=== PATIENT | male | born 2000 ===

== ENCOUNTER 2021-06-05 06:00 | Emergency (ER) | payer OTHER ==
--- OUTSIDE RECORDS SUMMARY | 2021-06-05 06:06 | XMS REPORT | Continuity of Care Document ---
:2000 Author Organization [facility] t Address [facility] [address] [place] [address] Care Team Providers Name Role Phone Aileen RENDON Primary Care Physician ARIANE Attending Clinician Unavailable Rayna Roberson Attending Clinician Ariane RENDON Attending Clinician Golden RENDON Attending Clinician Aden PAGAN Attending Clinician Lissy Galan MD Attending Clinician AILEEN Attending Clinician Unavailable Gopal ROSEN Attending Clinician MARTIN Attending Clinician Unavailable Aileen RENDON Attending Clinician Devang BRIONES Attending Clinician Unavailable ARIANE Admitting Clinician Unavailable Ariane RENDON Admitting Clinician Payers Payer Name Policy Type Policy Number Effective Date Expiration Date Edward JOHANSEN [id number] 2016 HEALTH 00:00:00 Problems Condition Condition Condition Status Onset Resolution Last Treating Co mments Source Name Details Category Date Date Treatment Clinician Date Acute Acute Disease Active Univers appendicit appendicit 1-11 it y of is is 00:00: [place] 00 Medical Branch Screening Screening Disease Active 2020-05 Uni vers for for 2-09 ity of diabetes diabetes 00:00: [place] mellitus mellitus 00 Medica l Branch Vapes Vapes Disease Active 2020-05 Univers nicotine nicotine -09 it[place] of containing [place] 00:[place] substance substance 00 [facility] Marijuana Marijuana Disease Active 2020-05 Uni vers use use 2- ity of 00:00: [place] 00 Medical Branch Need for Need for Disease Active 2020-05 Unive rs hepatitis hepatitis 2- ity of C C 00:00: [place] screening screening 00 Medi sharee test test Branch Anxiety Anxiety Disease Active 2020-05 Univers attack attack 2-09 ity of 00:00: [place] 00 Medical Branch PTSD PTSD Disease Active 2017-05 Univers (post-trau (post-trau 1-10 it y of matic matic 00:00: [place] stress stress 00 Medical disorder) disorder) Bran ch ADHD ADHD Disease Active 2017-05 Univers (attention (attention 1-10 it y of deficit deficit 00:00: [place] hyperactiv hyperactiv 00 Me dical ity ity Branch disorder) disorder) Learning Learning Disease Active 2017-05 Overview: Un dar[place] disability disability 1-10 Formattin ity of 00:00: g of this [place] note Medical might be Branch different from the original. Math Heart Heart Disease Active 2017-05 Overview: Univer s murmur murmur 0-20 Formattin ity of 00:00: g of this [place] note Medical might be Branch different from the original. Small secundum ASD vs. PFO Tachycardi Tachycardi Disease Active Overview : Univers a a 1-01 Formattin ity of 00:00: g of this [place] note Medical might be Branch different from the original. Has had evaluatio n by [facility] Cardiolog y - Dr. Patterson - 8. Palpitati ons history, normal EKG, Echo - with small secundum ASD/PFO H/O H/O Disease Active Univers seasonal seasonal ity of allergies allergies [facility] Asthma Asthma Disease Active Overview: Univer s Formattin ity of g of this [place] note Medical might be Branch different from the original. mild intermitt ent Anxiety Anxiety Disease Active Overview: Univ ers and and Formattin ity of depression depression g of this [place] note Medical might be Branch different from the original. Follows with Dr. Street - psychiatr y Allergies, Adverse Reactions, Alerts Allergy Allergy Status Severity Reaction(s) Onset Inactive Treating Comm ents Source Name Type Date Date Clinician NO KNOWN Drug Active Univers ALLERGIE Class ity of S [facility] Social History Social Habit Start Date Stop Date Quantity Comments Source Exposure to Not sure [facility] SARS-CoV-2 [facility] (event) Branch Alcohol intake 2021-06-02 2021-06-02 Current University of 00:00:00 00:00:00 non-drinker of [facility] alcohol (finding) Branch Tobacco use and 2021-05-31 2021-05-31 Current user Univers ity of exposure 00:00:00 00:00:00 [facility] Education 2021-05-31 2021-05-[address] [place] [address] of 00:00:00 00:00:00 [facility] Tobacco Comment 2021-05-31 2021-05-31 Vape/ Marijuana [facility] of 00:00:00 00:00:00 last use [facility] 05/31/2020 [place] Sex Assigned At [birth year] Universit y of 00:00:00 00:00:00 [facility] Smoking Status Start Date Stop Date Source Current every day smoker 2021-05-31 00:00:00 Uni versity of [facility] Never smoker [facility] [place] [facility] Medications Ordered Filled Start Stop Current Ordering Indication Dosage Frequency Signature Comments Components Source Medication Medication Date Date Medication? Clinician (SIG) Name Name HYDROcodone Yes [id number] 1{tbl} Take 1 Un darvin -acetaminop 1-13 tablet by ity of hen 5-325 00:00: mouth [place] mg tablet 00 every 6 Medical (six) Branch hours as needed for Pain (scale 7-10). Indication s: acute pain acetaminoph Yes 650mg 650 mg, Un darvin en 1-13 Oral, Q6H, ity of (TYLENOL) 00:00: [place] tablet 650 00 (after Medical mg last Branch modificati on) on Sun06/01/21 at 1800, Until Discontinu ed, Routine ibuprofen Yes 400mg 400 mg, Univ ers (IBU) 1-13 Oral, Q6H, ity of tablet 400 00:00: First dose [place] mg 00 on Sun Medical 06/01/21 at Branch 1800, Until Discontinu ed, Routine HYDROcodone 0 Yes [id number] 1{tbl} Take 1 Un darvin -acetaminop 1-13 tablet by ity of hen 5-325 00:00: mouth [place] mg tablet 00 every 6 Medical (six) Branch hours as needed for Pain (scale 7-10). Indication s: acute pain acetaminoph Yes 650mg 650 mg, Un darvin en 1-13 Oral, Q6H, ity of (TYLENOL) 00:00: [place] tablet 650 00 (after Medical mg last Branch modificati on) on Sun06/01/21 at 1800, Until Discontinu ed, Routine ibuprofen Yes 400mg 400 mg, Univ ers (IBU) 1-13 Oral, Q6H, ity of tablet 400 00:00: First dose [place] mg 00 on Sun Medical 06/01/21 at Branch 1800, Until Discontinu ed, Routine ibuprofen 2021- Yes [id number] 400mg Take 1 Univers 400 mg 06-02 tablet by ity of tablet 00:00: 05:59 mouth [place] 00 :00 every 6 Medical (six) Branch hours for 7 days. ibuprofen 2021- Yes [id number] 400mg Take 1 Univers 400 mg 06-02 tablet by ity of tablet 00:00: 05:59 mouth [place] 00 :00 every 6 Medical (six) Branch hours for 7 days. haloperidol 2021- No Intramuscu Univers lactate 06-01 lar, ONCE ity of (HALDOL) 20:39: 20:39 INTRA [place] injection 00 :39 PROCEDURE, Medi sharee Starting Branch on Sun06/01/21 at 1439, Until Sun06/01/21 at 1439, Routine, Intra-op NaCl 0.9% Yes 1000mL at 42 Unive rs (NS) IV 1-12 mL/hr, IV ity of infusion 20:30: Infusion, [place] 1,000 mL 00 CONTINUOUS Medic al , Starting Branch on Sun06/01/21 at 1430, Until Discontinu ed, Routine NaCl 0.9% 0 Yes 1000mL at 42 Unive rs (NS) IV 1-12 mL/hr, IV ity of infusion 20:30: Infusion, [place] 1,000 mL 00 CONTINUOUS Medic al , Starting Branch on Sun06/01/21 at 1430, Until Discontinu ed, Routine sugammadex 2021- No IV Push, Un darvin (BRIDION) 06-01 ONCE INTRA ity of injection 20:12: 20:26 PROCEDURE, [place] 00 :18 Starting Medical on Sun Branch 06/01/21 at 1412, Until Sun06/01/21 at 1426, Routine, Intra-op ketorolac 2021- No Slow IV Univ ers (TORADOL) 06-01 Push, ONCE ity of injection 20:07: 20:26 INTRA [place] 00 :18 PROCEDURE, Medical Starting Branch on Sun06/01/21 at 1407, Until Sun06/01/21 at 1426, Routine, Intra-op acetaminoph 2021- No IV Unive rs en ADULT 06-01 Infusion, ity o f (OFIRMEV) 19:58: 20:26 Administer [place] injection 00 :18 over 15 Medical Minutes, Branch ONCE INTRA PROCEDURE, Starting on Sun06/01/21 at 1358, Until Sun06/01/21 at 1426, Routine, Intra-op ondansetron 2021- No Slow IV Un darvin (ZOFRAN 06-01 Push, ONCE ity o f (PF)) 19:56: 20:26 INTRA [place] injection 00 :18 PROCEDURE, Medi sharee Starting Branch on Sun06/01/21 at 1356, Until Sun06/01/21 at 1426, Routine, Intra-op sodium 2021-0 Yes PRN, Univers chloride 06-01 Starting ity of 0.9 % 19:48: on Sun irrigation 06/01/21 at Med ical solution 1348, Branch Until Discontinu ed, Intra-op sodium 2021-0 Yes PRN, Univers chloride 06-01 Starting ity of 0.9 % 19:48: on Sun irrigation 06/01/21 at Med ical solution 1348, Branch Until Discontinu ed, Intra-op bupivacaine 2021-0 Yes PRN, Univer s (preserv 06-01 Starting ity of free) 19:36: on Sun (SENSORCAIN 00 06/01/21 at Mo dicsd E MPF) 0.25 1336, Branch % (2.5 Intra-op mg/mL) 30 mL, lidocaine 1% (PF) (XYLOCAINE) 30 mL bupivacaine 2022-0 Yes PRN, Univer s (preserv 06-01 Starting ity of free) 19:36: on Sun [place] (SENSORCAIN 00 06/01/21 at Mo dical E MPF) 0.25 1336, Branch % (2.5 Intra-op mg/mL) 30 mL, lidocaine 1% (PF) (XYLOCAINE) 30 mL dexamethaso 2021- No IV Push, U nivers ne 06-01 ONCE INTRA ity of (DECADRON 19:31: 20:26 PROCEDURE, [place] PHOSPHATE) 00 :18 Starting Medic al injection on Sun Branch 06/01/21 at 1331, Until Sun06/01/21 at 1426, Routine, Intra-op cefOXitin 2021- No IV Univers (MEFOXIN) 06-01 Piggyback, ity of injection 19:18: 20:26 ONCE INTRA [place] 00 :18 PROCEDURE, Medical Starting Branch on Sun06/01/21 at 1318, Until Sun06/01/21 at 1426, SAMM, Intra-op succinylcho 2021- No Intravenou Univers line 06-01 s, ONCE ity of (QUELICIN) 19:09: 20:26 INTRA [place] injection 00 :18 PROCEDURE, Medi sharee Starting Branch on Sun06/01/21 at 1309, Until Sun06/01/21 at 1426, Routine, Intra-op rocuronium 2021- No IV Push, Un darvin (ZEMURON) 06-01 ONCE INTRA ity of injection 19:09: 20:26 PROCEDURE, [place] 00 :18 Starting Medical on Sun Branch 06/01/21 at 1309, Until Sun06/01/21 at 1426, Routine, Intra-op propofoL IV 2021- No Intravenou Univers infusion 06-01 s, ONCE ity of 19:09: 20:26 INTRA [place] 00 :18 PROCEDURE, Medical Starting Branch on Sun06/01/21 at 1309, Until Sun06/01/21 at 1426, Routine, Intra-op FENTanyl PF 2021- No Intravenou Univers (SUBLIMAZE 06-01 s, ONCE ity o f (PF)) 19:07: 20:26 INTRA [place] injection 00 :18 PROCEDURE, Medi sharee Starting Branch on Sun06/01/21 at 1307, Until Sun06/01/21 at 1426, Routine, Intra-op midazolam 2021- No IV Push, Uni vers (VERSED) 06-01 ONCE INTRA ity of injection 19:07: 20:26 PROCEDURE, [place] 00 :18 Starting Medical on Sun06/01/21 at 1307, Until Sun06/01/21 at 1426, Routine, Intra-op lactated 2021- No 1000mL at 42 Unive rs ringers IV 06-01 mL/hr, ity of infusion 19:00: 18:56 1,000 mL, [place] 1,000 mL 00 :00 IV Medical Infusion, Branch ONCE, 1 dose, On Sun06/01/21 at 1300, Routine, DSU Pre-op lactated 2021- No 1000mL at 42 Unive rs ringers IV 06-01 mL/hr, ity of infusion 19:00: 18:56 1,000 mL, [place] 1,000 mL 00 :00 IV Medical Infusion, Branch ONCE, 1 dose, On Sun06/01/21 at 1300, Routine, DSU Pre-op lactated 2021- No IV Univers ringers IV 06-0112 Infusion, ity of infusion 18:59: 20:26 CONTINUOUS [place] 00 :18 PRN, Medical Starting Branch on Sun06/01/21 at 1259, Until Sun06/01/21 at 1426, Routine, Intra-op SERTraline Yes 25mg 25 mg, Unive rs (ZOLOFT) -12 Oral, ity of tablet 25 15:00: DAILY, [place] mg 00 First dose Medical on Sun Branch 06/01/21 at 0900, Until Discontinu ed, Routine SERTraline Yes 25mg 25 mg, Unive rs (ZOLOFT) -12 Oral, ity of tablet 25 15:00: DAILY, [place] mg 00 First dose Medical on Sun Branch 06/01/21 at 0900, Until Discontinu ed, Routine traZODone 0 Yes 50mg 50 mg, Univer s (DESYREL) 1-12 Oral, QHS, ity of tablet 50 05:00: First dose [place] mg 00 on [facility] 05/31/21 at Branch 2300, Until Discontinu ed, Routine traZODone Yes 50mg 50 mg, Univer s (DESYREL) 1-12 Oral, QHS, ity of tablet 50 05:00: First dose [place] mg 00 on [facility] 05/31/21 at Branch 2300, Until Discontinu ed, Routine morpHINE 2021- No 2mg 2 mg, Slow Un davrin injection 2 06-01 IV Push, ity of mg 04:53: 03:08 [facility] [place] 54 :29 Starting Medical on [facility] 05/31/21 at 2253, Until Sun06/01/21 at 2108, Routine, Pain (scale 7-10) morpHINE 2021- No 2mg 2 mg, Slow Un [place] injection 2 06-01 IV Push, ity of mg 04:53: 03:08 Q4[facility], [place] 54 :29 Starting Medical on [facility] 05/31/21 at 2253, Until Sun06/01/21 at 2108, Routine, Pain (scale 7-10) albuterol Yes 2{puff} 2 Puff, Un [place] (VENTOLIN) 1-12 Inhalation ity of inhaler 2 04:53: , Q4HPRN, [place] Puff 11 Starting Medical on [facility] 05/31/21 at 2253, Until Discontinu ed, Routine, Wheezing, Shortness of Breath albuterol Yes 2{puff} 2 Puff, Un [place] (VENTOLIN) 1-12 Inhalation ity of inhaler 2 04:53: , Q4HPRN, [place] Puff 11 Starting Medical on [facility] 05/31/21 at 2253, Until Discontinu ed, Routine, Wheezing, Shortness of Breath NaCl 0.9% 2021- No 1000mL at 125 Uni vers (NS) IV 06-01 01-12 mL/hr, IV ity of infusion 04:15: 20:20 Infusion, [place] 1,000 mL 00 :10 CONTINUOUS Medic al , Starting Branch on Sun05/31/21 at 2215, Until Sun06/01/21 at 1420, Routine NaCl 0.9% 2021- No 1000mL at 125 Uni vers (NS) IV 06-01 mL/hr, IV ity of infusion 04:15: 20:20 Infusion, [place] 1,000 mL 00 :10 CONTINUOUS Medic al , Starting Branch on Sun05/31/21 at 2215, Until Sun06/01/21 at 1420, Routine HYDROcodone 2021- Yes 1{tbl} 1 tablet, Univers -acetaminop 06-01 Oral, ity of hen (NORCO 03:09: 03:08 Q6HPRN, [place] 5) 5-325 mg 26 :26 Starting Medi sharee tablet 1 on [facility] Branch tablet 05/31/21 at 2109, Until Yue 06/02/21 at 2108, Routine, Pain (scale 4-6) HYDROcodone 2021- Yes 1{tbl} 1 tablet, Univers -acetaminop 06-01 Oral, ity of hen (NORCO 03:09: 03:08 Q6HPRN, [place] 5) 5-325 mg 26 :26 Starting Medi sharee tablet 1 on [facility] Branch tablet 05/31/21 at 2109, Until Yue 06/02/21 at 2108, Routine, Pain (scale 4-6) acetaminoph 2021- No 650mg 650 mg, U nivers en 06-01 Oral, ity of (TYLENOL) 03:09: 20:20 Q6HPRN, [place] tablet 650 24 :10 Starting Medic al mg on e Branch 05/31/21 at 2109, Until Sun06/01/21 at 1420, Routine, Pain (scale 1-3) acetaminoph 2021- No 650mg 650 mg, U nivers en 06-01 Oral, ity of (TYLENOL) 03:09: 20:20 Q6HPRN, [place] tablet 650 24 :10 Starting Medic al mg on e Branch 05/31/21 at 2109, Until Sun06/01/21 at 1420, Routine, Pain (scale 1-3) piperacilli 2021-0 2021- No 3.375g 3.375 g, Univers n-tazobacta 06-01 IV ity of m (ZOSYN) 03:00: 02:36 Piggyback, [place] 3.375 g in 00 :00 ONCE, 1 Medica l NaCl 0.9% dose, On Branch (NS) 100 mL Tue MINI-BAG 05/31/21 at 2100, Administer over 30 Minutes, 100 mL
Reas on for Anti-Infec tive: Empiric Therapy for Suspected Infection< br>Empiric Therapy Site: Abdominal< br>Duratio n of therapy: 72 hours piperacilli 2021-0 2021- No 3.375g 3.375 g, Univers n-tazobacta 06-01 IV ity of m (ZOSYN) 03:00: 02:36 [place]back, [place] 3.375 g in 00 :00 ONCE, 1 Medica l NaCl 0.9% dose, On Branch (NS) 100 mL Tue MINI-BAG 05/31/21 at 2100, Administer over 30 Minutes, 100 mL
Reas on for Anti-Infec tive: Empiric Therapy for Suspected Infection< br>Empiric Therapy Site: Abdominal< br>Duratio n of therapy: 72 hours ondansetron 2021- No 4mg 4 mg, Slow Univers (ZOFRAN 06-01 IV Push, ity of (PF)) 02:15: 01:24 ONCE, 1 [place] injection 4 00 :00 dose, On Medi sharee mg Tue Branch 05/31/21 at 2014, SAMM morpHINE 2021- No 4mg 4 mg, Slow Un darvin injection 4 06-01 IV Push, ity of mg 02:15: 01:24 ONCE, 1 [place] 00 :00 dose, On Medical Tue Branch 05/31/21 at 2014, STAT iopamidol 2021-2021- No [id number] 100mL 100 mL, Univers (ISOVUE 06-01 Intravenou ity o f 370-500 mL) 02:15: 00:59 s, ONCE, 1 [place] injection 00 :00 dose, On Medica l 100 mL Tue Branch 05/31/21 at 2014, Routine ondansetron 2021- No 4mg 4 mg, Slow Univers (ZOFRAN 06-01 IV Push, ity of (PF)) 02:15: 01:24 ONCE, 1 [place] injection 4 00 :00 dose, On Medi sharee mg [facility] 05/31/21 at 2014, SAMM morpHINE 2021- No 4mg 4 mg, Slow Un darvin injection 4 06-01 IV Push, ity of mg 02:15: 01:24 ONCE, 1 [place] 00 :00 dose, On Medical [facility] Branch 05/31/21 at 2014, STAT iopamidol 2021- No [id number] 100mL 100 mL, Univers (ISOVUE 06-01 Intravenou ity o f 370-500 mL) 02:15: 00:59 s, ONCE, 1 [place] injection 00 :00 dose, On Medica l 100 mL [facility] 05/31/21 at 2014, Routine traZODone 2020-05 Yes [id number] 50mg Take 1 U nivers 50 mg 2-09 tablet by ity of tablet 00:00: mouth at [place] 00 bedtime. Medical Branch SERTraline 2020-05 Yes [id number] 25mg Take 1 Univers 25 mg 2-09 tablet by ity of tablet 00:00: mouth [place] 00 daily. Medical Branch traZODone 2020-05 Yes [id number] 50mg Take 1 U nivers 50 mg 2-09 tablet by ity of tablet 00:00: mouth at [place] 00 bedtime. Medical Branch SERTraline 2020-05 Yes [id number] 25mg Take 1 Univers 25 mg 2-09 tablet by ity of tablet 00:00: mouth [place] 00 daily. Medical Branch traZODone 2020-05 Yes [id number] 50mg Take 1 U nivers 50 mg 2-09 tablet by ity of tablet 00:00: mouth at [place] 00 bedtime. Medical Branch SERTraline 2020-05 Yes [id number] 25mg Take 1 Univers 25 mg 2-09 tablet by ity of tablet 00:00: mouth [place] 00 daily. Medical Branch traZODone 2020-05 Yes [id number] 50mg Take 1 U nivers 50 mg 2-09 tablet by ity of tablet 00:00: mouth at [place] [address] bedtime. Medical Branch SERTraline 2020-05 Yes [id number] 25mg Take 1 Univers 25 mg 2-09 tablet by ity of tablet 00:00: mouth [place] 00 daily. Medical Branch traZODone 2020-05 Yes [id number] 50mg Take 1 U nivers 50 mg 2-09 tablet by ity of tablet 00:00: mouth at [place] [address] bedtime. Medical Branch SERTraline 2020-05 Yes [id number] 25mg Take 1 Univers 25 mg 2-09 tablet by ity of tablet 00:00: mouth [place] 00 daily. Medical Branch cetirizine 2020-05- No [id number] 10mg Take 1 Univers 10 mg 0-28 12- tablet by ity of tablet 00:00: 00:00 mouth [place] 00 :00 daily. Medical Branch fluticasone 2020-05- No [id number] 2{spray Use 2 Univers propionate 0-04-28 } Sprays in ity of 50 00:00: 00:00 each [place] mcg/actuati 00 :00 nostril Medic al on nasal daily. Branch spray VIOS Milady 2020-05 Yes 10mg Take 10 mg Un darvin 0-21 by mouth. ity of 00:00: [place] 00 Medical Branch albuterol 2020-05 Yes Univers 2.5 mg /3 0-21 ity of mL (0.083 00:00: [place] %) 00 Medical nebulizer Branch solution VIOS Milady 2020-05 Yes 10mg Take 10 mg Un darvin 0-21 by mouth. ity of 00:00: 00 Medical Branch albuterol 2020-05 Yes Univers 2.5 mg /3 0-21 ity of mL (0.083 00:00: [place] %) 00 Medical nebulizer Branch solution VIOS Milady 2020-05 Yes 10mg Take 10 mg Un darvin 0-21 by mouth. ity of 00:00: [place] 00 Medical Branch albuterol 2020-05 Yes Univers 2.5 mg /3 0-21 ity of mL (0.083 00:00: [place] %) 00 Medical nebulizer Branch solution VIOS Milady 2020-05 Yes 10mg Take 10 mg Un darvin 0-21 by mouth. ity of 00:00: [place] 00 Medical Branch albuterol 2020-05 Yes Univers 2.5 mg /3 0-21 ity of mL (0.083 00:00: [place] %) 00 Medical nebulizer Branch solution VIOS Milady 2020-05 Yes 10mg Take 10 mg Un darvin 0-21 by mouth. ity of 00:00: Medical Branch albuterol 2020-05 Yes Univers 2.5 mg /3 0-21 ity of mL (0.083 00:00: [place] %) 00 Medical nebulizer Branch solution albuterol Yes [id number] 2{puff} Inhale 2 Univers (PROAIR 5-24 Puffs ity of HFA) 90 00:00: every 4 [place] mcg/actuati 00 (four) Medica l on inhaler hours as Branc h needed for Wheezing or Shortness of Breath. albuterol Yes [id number] 2{puff} Inhale 2 Univers (PROAIR 5-24 Puffs ity of HFA) 90 00:00: every 4 [place] mcg/actuati 00 (four) Medica l on inhaler hours as Branc h needed for Wheezing or Shortness of Breath. albuterol Yes [id number] 2{puff} Inhale 2 Univers (PROAIR 5-24 Puffs ity of HFA) 90 00:00: every 4 [place] mcg/actuati 00 (four) Medica l on inhaler hours as Branc h needed for Wheezing or Shortness of Breath. albuterol Yes [id number] 2{puff} Inhale 2 Univers (PROAIR 5-24 Puffs ity of HFA) 90 00:00: every 4 [place] mcg/actuati 00 (four) Medica l on inhaler hours as Branc h needed for Wheezing or Shortness of Breath. albuterol Yes [id number] 2{puff} Inhale 2 Univers (PROAIR 5-24 Puffs ity of HFA) 90 00:00: every 4 [place] mcg/actuati 00 (four) Medica l on inhaler hours as Branc h needed for Wheezing or Shortness of Breath. FLUoxetine 2020- No [id number] 30mg Take 1.5 Univers 20 mg 4-28 12- tablets by ity of tablet 00:00: 00:00 mouth [place] 00 :00 daily. [facility] cetirizine 2018-2020- No [id number] 10mg Take 1 Univers 10 mg 4-25 12- tablet by ity of tablet 00:00: 00:00 mouth [place] 00 :00 daily. [facility] traZODONE 2017-2020- No [id number] 100mg Take 100 Univers 100 mg 0-23 12-09 mg by ity of tablet 00:00: 00:00 mouth at [place] 00 :00 bedtime. [facility] Immunizations Ordered Immunization Filled Immunization Date Status Commen ts Source Name Name Influenza Virus 2018-03-13 Completed Universit y of Vaccine Quad IM 3+ 00:00:00 [facility] Influenza Virus 2018-03-13 Completed Universit y of Vaccine Quad IM 3+ 00:00:00 [facility] Influenza Virus 2018-03-13 Completed Universit y of Vaccine Quad IM 3+ 00:00:00 [facility] Influenza Virus 2018-03-13 Completed Universit y of Vaccine Quad IM 3+ 00:00:00 [facility] Influenza Virus 2018-03-13 Completed Universit y of Vaccine Quad IM 3+ 00:00:00 [facility] HPV9 2018-02-08 Completed University of 00:00:00 [facility] Meningococcal 2018-02-08 Completed University of Polysaccharide 00:00:00 [place] Medi sharee (groups A, C, Y and Branc h W-135) conjugate vaccine (MCV4P) HPV9 2018-02-08 Completed University of 00:00:00 [facility] Meningococcal 2018-02-08 Completed University of Polysaccharide 00:00:00 [place] Medi sharee (groups A, C, Y and Branc h W-135) conjugate vaccine (MCV4P) HPV9 2018-02-08 Completed University of 00:00:00 [facility] Meningococcal 2018-02-08 Completed University of Polysaccharide 00:00:00 [place] Medi sharee (groups A, C, Y and Branc h W-135) conjugate vaccine (MCV4P) HPV9 2018-02-08 Completed University of 00:00:00 [facility] Meningococcal 2018-02-08 Completed University of Polysaccharide 00:00:00 [place] Medi sharee (groups A, C, Y and Branc h W-135) conjugate vaccine (MCV4P) HPV9 2018-02-08 Completed University of 00:00:00 [facility] Meningococcal 2018-02-08 Completed University of Polysaccharide 00:00:00 [facility] sharee (groups A, C, Y and Branc h W-135) conjugate vaccine (MCV4P) HPV 2015-01-12 Completed University of 00:00:00 [facility] Meningococcal Vaccine 2015-01-12 Completed Uni versity of 00:00:00 [facility] Varicella 2015-01-12 Completed University of (varivax)(chicken 00:00:00 [place] M edical pox) Branch TDAP (ADACEL) VACCINE 2015-01-12 Completed Uni versity of 00:00:00 [facility] HPV 2015-01-12 Completed University of 00:00:00 [facility] Meningococcal Vaccine 2015-01-12 Completed Uni versity of 00:00:00 [facility] Varicella 2015-01-12 Completed University of (varivax)(chicken 00:00:00 [place] M edical pox) Branch TDAP (ADACEL) VACCINE 2015-01-12 Completed Uni versity of 00:00:00 [facility] HPV 2015-01-12 Completed University of 00:00:00 [facility] Meningococcal Vaccine 2015-01-12 Completed Uni versity of 00:00:00 [facility] Varicella 2015-01-12 Completed University of (varivax)(chicken 00:00:00 [place] M edical pox) Branch TDAP (ADACEL) VACCINE 2015-01-12 Completed Uni versity of 00:00:00 [facility] HPV 2015-01-12 Completed University of 00:00:00 [facility] Meningococcal Vaccine 2015-01-12 Completed Uni versity of 00:00:00 [facility] Varicella 2015-01-12 Completed University of (varivax)(chicken 00:00:00 [place] M edical pox) Branch TDAP (ADACEL) VACCINE 2015-01-12 Completed Uni versity of 00:00:00 [facility] HPV 2015-01-12 Completed University of 00:00:00 [facility] Meningococcal Vaccine 2015-01-12 Completed Uni versity of 00:00:00 [facility] Varicella 2015-01-12 Completed University of (varivax)(chicken 00:00:00 [place] [facility] pox) Branch TDAP (ADACEL) VACCINE 2015-01-12 Completed Uni versity of 00:00:00 [facility] Varicella 2006-10-27 Completed University of (varivax)(chicken 00:00:00 [place] [facility] pox) Branch Varicella 2006-10-27 Completed University of (varivax)(chicken 00:00:00 [place] [facility] pox) Branch Varicella 2006-10-27 Completed University of (varivax)(chicken 00:00:00 [place] [facility] pox) Branch Varicella 2006-10-27 Completed University of (varivax)(chicken 00:00:00 [place] [facility] pox) Branch Varicella 2006-10-27 Completed University of (varivax)(chicken 00:00:00 [place] [facility] pox) [place] Influenza Virus 2006-03-17 Completed Universit y of Vaccine 00:00:00 [facility] Influenza Virus 2006-03-17 Completed Universit y of Vaccine 00:00:00 [facility] Influenza Virus 2006-03-17 Completed Universit y of Vaccine 00:00:00 [facility] Influenza Virus 2006-03-17 Completed Universit y of Vaccine 00:00:00 [facility] Influenza Virus 2006-03-17 Completed Universit y of Vaccine 00:00:00 [facility] HEPATITIS A 2005-10-12 Completed University of 00:00:00 [facility] MMR 2005-10-12 Completed University of 00:00:00 [facility] Polio (IPV/OPV) 2005-10-12 Completed Universit y of 00:00:00 [facility] DTAP 2005-10-12 Completed University of 00:00:00 [facility] HEPATITIS A 2005-10-12 Completed University of 00:00:00 [facility] MMR 2005-10-12 Completed University of 00:00:00 [facility] Polio (IPV/OPV) 2005-10-12 Completed Universit y of 00:00:00 [facility] DTAP 2005-10-12 Completed University of 00:00:00 [facility] HEPATITIS A 2005-10-12 Completed University of 00:00:00 [facility] MMR 2005-10-12 Completed University of 00:00:00 [facility] Polio (IPV/OPV) 2005-10-12 Completed Universit y of 00:00:00 [facility] DTAP 2005-10-12 Completed University of 00:00:00 [facility] HEPATITIS A 2005-10-12 Completed University of 00:00:00 [facility] MMR 2005-10-12 Completed University of 00:00:00 [facility] Polio (IPV/OPV) 2005-10-12 Completed Universit y of 00:00:00 [facility] DTAP 2005-10-12 Completed University of 00:00:00 [facility] HEPATITIS A 2005-10-12 Completed University of 00:00:00 [facility] MMR 2005-10-12 Completed University of 00:00:00 [facility] Polio (IPV/OPV) 2005-10-12 Completed Universit y of 00:00:00 [facility] DTAP 2005-10-12 Completed University of 00:00:00 [facility] Influenza Virus 2005-04-08 Completed Universit y of Vaccine 00:00:00 [facility] Influenza Virus 2005-04-08 Completed Universit y of Vaccine 00:00:00 [facility] Influenza Virus 2005-04-08 Completed Universit y of Vaccine 00:00:00 [facility] Influenza Virus 2005-04-08 Completed Universit y of Vaccine 00:00:00 [facility] Influenza Virus 2005-04-08 Completed Universit y of Vaccine 00:00:00 [facility] HIB 4 Dose Schedule 2004-10-04 Completed Unive rsity of 00:00:00 [facility] HEPATITIS A 2004-10-04 Completed University of 00:00:00 [facility] Polio (IPV/OPV) 2004-10-04 Completed Universit y of 00:00:00 [facility] Pneumococcal 7 2004-10-04 Completed University of Conjugate, PCV7 00:00:00 [facility] ical (Prevnar7) Branch HIB 4 Dose Schedule 2004-10-04 Completed Unive rsity of 00:00:00 [facility] HEPATITIS A 2004-10-04 Completed University of 00:00:00 [facility] Polio (IPV/OPV) 2004-10-04 Completed Universit y of 00:00:00 [facility] Pneumococcal 7 2004-10-04 Completed University of Conjugate, PCV7 00:00:00 [facility] ical (Prevnar7) Branch HIB 4 Dose Schedule 2004-10-04 Completed Unive rsity of 00:00:00 [facility] HEPATITIS A 2004-10-04 Completed University of 00:00:00 [facility] Polio (IPV/OPV) 2004-10-04 Completed Universit y of 00:00:00 [facility] Pneumococcal 7 2004-10-04 Completed University of Conjugate, PCV7 00:00:00 [place] [facility] (Prevnar7) Branch HIB 4 Dose Schedule 2004-10-04 Completed Unive rsity of 00:00:00 [facility] HEPATITIS A 2004-10-04 Completed University of 00:00:00 [facility] Polio (IPV/OPV) 2004-10-04 Completed Universit y of 00:00:00 [facility] Pneumococcal 7 2004-10-04 Completed University of Conjugate, PCV7 00:00:00 [place] [facility] (Prevnar7) Branch HIB 4 Dose Schedule 2004-10-04 Completed Unive rsity of 00:00:00 [facility] HEPATITIS A 2004-10-04 Completed University of 00:00:00 [facility] Polio (IPV/OPV) 2004-10-04 Completed Universit y of 00:00:00 [facility] Pneumococcal 7 2004-10-04 Completed University of Conjugate, PCV7 00:00:00 [place] [facility] (Prevnar7) Branch Polio (IPV/OPV) 2003-01-06 Completed Universit y of 00:00:00 [facility] Pneumococcal 7 2003-01-06 Completed University of Conjugate, PCV7 00:00:00 [place] [facility] (Prevnar7) Branch DTAP 2003-01-06 Completed University of 00:00:00 [facility] HIB 4 Dose Schedule 2003-01-06 Completed Unive rsity of 00:00:00 [facility] Polio (IPV/OPV) 2003-01-06 Completed Universit y of 00:00:00 [facility] Pneumococcal 7 2003-01-06 Completed University of Conjugate, PCV7 00:00:00 [place] [facility] (Prevnar7) Branch DTAP 2003-01-06 Completed University of 00:00:00 [facility] HIB 4 Dose Schedule 2003-01-06 Completed Unive rsity of 00:00:00 [facility] Polio (IPV/OPV) 2003-01-06 Completed Universit y of 00:00:00 [facility] Pneumococcal 7 2003-01-06 Completed University of Conjugate, PCV7 00:00:00 [place] [facility] (Prevnar7) Branch DTAP 2003-01-06 Completed University of 00:00:00 [facility] HIB 4 Dose Schedule 2003-01-06 Completed Unive rsity of 00:00:00 [facility] Polio (IPV/OPV) 2003-01-06 Completed Universit y of 00:00:00 [facility] Pneumococcal 7 2003-01-06 Completed University of Conjugate, PCV7 00:00:00 [place] [facility] (Prevnar7) Branch DTAP 2003-01-06 Completed University of 00:00:00 [facility] HIB 4 Dose Schedule 2003-01-06 Completed Unive rsity of 00:00:00 [facility] Polio (IPV/OPV) 2003-01-06 Completed Universit y of 00:00:00 [facility] Pneumococcal 7 2003-01-06 Completed University of Conjugate, PCV7 00:00:00 [place] [facility] (Prevnar7) Branch DTAP 2003-01-06 Completed University of 00:00:00 [facility] HIB 4 Dose Schedule 2003-01-06 Completed Unive rsity of 00:00:00 [facility] MMR 2002-10-09 Completed University of 00:00:00 [facility] Varicella 2002-10-09 Completed University of (varivax)(chicken 00:00:00 [place] [facility] pox) Branch Pneumococcal 7 2002-10-09 Completed University of Conjugate, PCV7 00:00:00 [place] [facility] (Prevnar7) Branch MMR 2002-10-09 Completed University of 00:00:00 [facility] Varicella 2002-10-09 Completed University of (varivax)(chicken 00:00:00 [place] [facility] pox) Branch Pneumococcal 7 2002-10-09 Completed University of Conjugate, PCV7 00:00:00 [place] [facility] (Prevnar7) Branch MMR 2002-10-09 Completed University of 00:00:00 [facility] Varicella 2002-10-09 Completed University of (varivax)(chicken 00:00:00 [place] [facility] pox) Branch Pneumococcal 7 2002-10-09 Completed University of Conjugate, PCV7 00:00:00 [place] [facility] (Prevnar7) Branch MMR 2002-10-09 Completed University of 00:00:00 [facility] Varicella 2002-10-09 Completed University of (varivax)(chicken 00:00:00 [place] [facility] pox) Branch Pneumococcal 7 2002-10-09 Completed University of Conjugate, PCV7 00:00:00 [place] [facility] (Prevnar7) Branch MMR 2002-10-09 Completed University of 00:00:00 [facility] Branch Varicella 2002-10-09 Completed University of (varivax)(chicken 00:00:00 [facility] edical pox) Branch Pneumococcal 7 2002-10-09 Completed University of Conjugate, PCV7 00:00:00 [place] [facility] (Prevnar7) Branch Pneumococcal 7 2002-07-03 Completed University of Conjugate, PCV7 00:00:00 [place] [facility] (Prevnar7) Branch Pneumococcal 7 2002-07-03 Completed University of Conjugate, PCV7 00:00:00 [place] [facility] (Prevnar7) Branch Pneumococcal 7 2002-07-03 Completed University of Conjugate, PCV7 00:00:00 [place] [facility] (Prevnar7) Branch Pneumococcal 7 2002-07-03 Completed University of Conjugate, PCV7 00:00:00 [place] [facility] (Prevnar7) Branch Pneumococcal 7 2002-07-03 Completed University of Conjugate, PCV7 00:00:00 [place] [facility] (Prevnar7) Branch Hep B, Adol or Pedi 2002-04-03 Completed Unive rsity of Dosage 00:00:00 [facility] DTAP 2002-04-03 Completed University of 00:00:00 [facility] HIB 4 Dose Schedule 2002-04-03 Completed Unive rsity of 00:00:00 [facility] Hep B, Adol or Pedi 2002-04-03 Completed Unive rsity of Dosage 00:00:00 [facility] DTAP 2002-04-03 Completed University of 00:00:00 [facility] HIB 4 Dose Schedule 2002-04-03 Completed Unive rsity of 00:00:00 [facility] Hep B, Adol or Pedi 2002-04-03 Completed Unive rsity of Dosage 00:00:00 [facility] DTAP 2002-04-03 Completed University of 00:00:00 [facility] HIB 4 Dose Schedule 2002-04-03 Completed Unive rsity of 00:00:00 [facility] Hep B, Adol or Pedi 2002-04-03 Completed Unive rsity of Dosage 00:00:00 [facility] DTAP 2002-04-03 Completed University of 00:00:00 [facility] HIB 4 Dose Schedule 2002-04-03 Completed Unive rsity of 00:00:00 [place] [facility] Hep B, Adol or Pedi 2002-04-03 Completed Unive rsity of Dosage 00:00:00 [facility] DTAP 2002-04-03 Completed University of 00:00:00 [facility] HIB 4 Dose Schedule 2002-04-03 Completed Unive rsity of 00:00:00 [facility] Branch Polio (IPV/OPV) 2002-02-06 Completed Universit y of 00:00:00 [place] [facility] DTAP 2002-02-06 Completed University of 00:00:00 [facility] HIB 4 Dose Schedule 2002-02-06 Completed Unive rsity of 00:00:00 [facility] Branch Polio (IPV/OPV) 2002-02-06 Completed Universit y of 00:00:00 [facility] DTAP 2002-02-06 Completed University of 00:00:00 [facility] HIB 4 Dose Schedule 2002-02-06 Completed Unive rsity of 00:00:00 [facility] Polio (IPV/OPV) 2002-02-06 Completed Universit y of 00:00:00 [facility] DTAP 2002-02-06 Completed University of 00:00:00 [facility] HIB 4 Dose Schedule 2002-02-06 Completed Unive rsity of 00:00:00 [facility] Polio (IPV/OPV) 2002-02-06 Completed Universit y of 00:00:00 [facility] DTAP 2002-02-06 Completed University of 00:00:00 [facility] HIB 4 Dose Schedule 2002-02-06 Completed Unive rsity of 00:00:00 [facility] Branch Polio (IPV/OPV) 2002-02-06 Completed Universit y of 00:00:00 [facility] DTAP 2002-02-06 Completed University of 00:00:00 [facility] HIB 4 Dose Schedule 2002-02-06 Completed Unive rsity of 00:00:00 [facility] Branch Hep B, Adol or Pedi 2001 Completed Unive rsity of Dosage 00:00:00 [facility] Polio (IPV/OPV) 2001 Completed Universit y of 00:00:00 [facility] Branch DTAP 2001 Completed University of 00:00:00 [facility] HIB 4 Dose Schedule 2001 Completed Unive rsity of 00:00:00 [facility] Hep B, Adol or Pedi 2001 Completed Unive rsity of Dosage 00:00:00 [facility] Polio (IPV/OPV) 2001 Completed Universit y of 00:00:00 [facility] DTAP 2001 Completed University of 00:00:00 [facility] HIB 4 Dose Schedule 2001 Completed Unive rsity of 00:00:00 [facility] Branch Hep B, Adol or Pedi 2001 Completed Unive rsity of Dosage 00:00:00 [facility] Polio (IPV/OPV) 2001 Completed Universit y of 00:00:00 [facility] DTAP 2001 Completed University of 00:00:00 [facility] HIB 4 Dose Schedule 2001 Completed Unive rsity of 00:00:00 [facility] Hep B, Adol or Pedi 2001 Completed Unive rsity of Dosage 00:00:00 [facility] Polio (IPV/OPV) 2001 Completed Universit y of 00:00:00 [facility] DTAP 2001 Completed University of 00:00:00 [facility] HIB 4 Dose Schedule 2001 Completed Unive rsity of 00:00:00 [facility] Branch Hep B, Adol or Pedi 2001 Completed Unive rsity of Dosage 00:00:00 [facility] Polio (IPV/OPV) 2001 Completed Universit y of 00:00:00 [facility] DTAP 2001 Completed University of 00:00:00 [facility] HIB 4 Dose Schedule 2001 Completed Unive rsity of 00:00:00 [facility] Branch Hep B, Adol or Pedi 2001 Completed Unive rsity of Dosage 00:00:00 [facility] Hep B, Adol or Pedi 2001 Completed Unive rsity of Dosage 00:00:00 [facility] Hep B, Adol or Pedi 2001 Completed Unive rsity of Dosage 00:00:00 [facility] Hep B, Adol or Pedi 2001 Completed Unive rsity of Dosage 00:00:00 [facility] Hep B, Adol or Pedi 2001 Completed Unive rsity of Dosage 00:00:00 [facility] Vital Signs Vital Name Observation Time Observation Value Comments Source Systolic blood 2021-06-02 13:20:00 114 mm[Hg] Univer sity of pressure [facility] Diastolic blood 2021-06-02 13:20:00 61 mm[Hg] Unive rsity of pressure [facility] Heart rate 2021-06-02 13:20:00 88 /min Universi ty of [facility] Body temperature 2021-06-02 13:20:00 36.72 Pushpa Univ ersity of [facility] Respiratory rate 2021-06-02 13:20:00 16 /min Univ ersity of [facility] Oxygen saturation in 2021-06-02 13:20:00 96 /min University of Arterial blood by [place] [employer] share[employer] Pulse oximetry Branch Body weight 2021-06-02 08:55:00 84.959 kg Universi ty of [facility] BMI 2021-06-02 08:55:00 25.40 kg/m2 Universi ty [facility] Body mass index 2021-06-02 08:55:00 76.43 % Unive rsity of (BMI) [Percentile] [facility] ica Per age and sex Branch Body height 2021-06-01 15:08:00 182.9 cm Universi ty of [facility] Systolic blood 2021-06-01 21:05:00 117 mm[Hg] Univer sity of [facility] Diastolic blood 2021-06-01 21:05:00 58 mm[Hg] Unive rsity of pressure [facility] Heart rate 2021-06-01 21:05:00 78 /min Universi ty of [facility] Oxygen saturation in 2021-06-01 21:05:00 95 /min University of Arterial blood by [place] [employer] sharee Pulse oximetry Branch Body temperature 2021-06-01 20:26:00 37.17 [place] Univ ersity of [facility] Respiratory rate 2021-06-01 18:40:00 18 /min Univ ersity of [facility] Body height 2021-06-01 15:08:00 182.9 cm Universi ty of [facility] Body weight 2021-06-01 15:08:00 81.5 kg Universi ty of [facility] BMI 2021-06-01 15:08:00 25.40 kg/m2 [facility] Body mass index 2021-06-01 15:08:00 76.43 % Unive rsity of (BMI) [Percentile] [place] [facility] Per age and sex Branch Systolic blood 2021-04-28 16:53:00 123 mm[Hg] Univer sity of pressure [facility] Diastolic blood 2021-04-28 16:53:00 80 mm[Hg] Unive rsity of pressure [facility] Heart rate 2021-04-28 16:53:00 75 /min [facility] Body temperature 2021-04-28 16:53:00 37.56 Pushpa [facility] Res[facility] rate 2021-04-28 16:53:00 18 /min [facility] Body height 2021-04-28 16:53:00 182.9 cm [facility] Body weight 2021-04-28 16:53:00 82.101 kg [facility] BMI 2021-04-28 16:53:00 24.55 kg/m2 [facility] Body mass index 2021-04-28 16:53:00 69.82 % Unive rsity of (BMI) [Percentile] [place] [facility] Per age and sex Branch Oxygen saturation in 2021-04-28 16:53:00 98 /min [facility] Arterial blood by [facility] Pulse oximetry Branch Procedures Procedure Date / Time Performing Clinician Source Performed INTUBATION 2021-06-01 18:49:00 Braxton Cleary [facility] LAPAROSCOPIC APPENDECTOMY 2021-06-01 18:44:00 Roula Franks [facility] LAPAROSCOPIC APPENDECTOMY 2021-06-01 18:44:00 Roula Franks [facility] URINALYSIS 2021-06-01 01:30:00 Dwain Walker [facility] URINALYSIS 2021-06-01 01:30:00 Dwain Walker [facility] CT ABDOMEN PELVIS W 2021-06-01 01:08:00 Dwain Walker [facility] CT ABDOMEN PELVIS W 2021-06-01 01:08:00 Dwain Walker [facility] CONTRAST Medical Branch BASIC METABOLIC PANEL 2021-06-01 00:20:00 Dwain Walker B [facility] (NA, K, CL, CO2, GLUCOSE, Medica l Branch BUN, CREATININE, [place]) CBC WITH DIFF 2021-06-01 00:20:00 Dwain Walker [facility] COVID-19 (ID NOW RAPID 2021-06-01 00:20:00 Dwain Walker B [facility] TESTING) Medical Branch LAB ONLY COVID 2021-06-01 00:20:00 Dwain Walker [facility] INTERPRETATION [facility] BASIC METABOLIC PANEL 2021-06-01 00:20:00 Dwain Walker [facility] (NA, K, CL, CO2, GLUCOSE, Medica l Branch BUN, CREATININE, CA) CBC WITH DIFF 2021-06-01 00:20:00 Dwain Walker [facility] COVID-19 (ID NOW RAPID 2021-06-01 00:20:00 Dwain Walker B [facility] TESTING) Medical Branch LAB ONLY COVID 2021-06-01 00:20:00 Dwain Walker [facility] NOTICE OF PRIVACY 2021-05-31 23:35:30 Doctor Unassigned, [facility] Medical Branch NOTICE OF PRIVACY 2021-05-31 23:35:30 Doctor Unassigned, [facility] Medical Branch CONSENT/REFUSAL FOR 2021-05-31 23:35:02 Doctor Unassigned, [facility] DIAGNOSIS AND TREATMENT [place] [facility] CONSENT/REFUSAL FOR 2021-05-31 23:35:02 Doctor Unassigned, [facility] DIAGNOSIS AND TREATMENT [place] [facility] Encounters Start End Encounter Admission Attending Care Care Encounter Source Date/Time Date/Time Type Type Clinicians Facility Department ID 2021-05-31 2021-06-02 Outpatient Zaira THAKKAR VTJOSIAH [facility] [id number] Univers 17:45:00 11:35:00 FREDDY [facility] Medical Branch 2021-05-31 2021-06-02 Emergency Dwain Walker [facility] [id number] Univers 17:45:00 11:35:00 Freddy Thakkar [id number] [id number] [id number] [facility] 081 Branch 2021-06-01 2021-06-01 Surgery Golden [facility] [id number] Univers 13:00:00 15:07:00 Roula MAKI [id number] i ty [facility] [id number] [id number] [facility] 020 Branch 2021-06-01 2021-06-01 Anesthesia DanielpatyClint [facility] [id number] Univers 12:59:00 14:26:00 Event Ramón Galan [id number] [facility] [id number] [id number] [facility] 020 [place] 2021-05-31 2021-05-31 Outpatient R [facility] [id number] Univers 19:00:00 19:00:00 [id number] ity [facility] 2021-05-31 2021-05-31 Outpatient R [facility] [id number] Univers 19:00:00 19:00:00 ity [facility] 2021-05-31 2021-05-31 Outpatient R [facility] [id number] Univers 17:00:00 17:00:00 ity [facility] 2021-05-26 2021-05-26 [id number] Univers 09:00:00 09:00:00 EVARISTO ity [facility] 2021-05-19 2021-05-19 Hazel Herron [facility] [id number] Univers 00:00:00 00:00:00 PatriciaTwoodo [id number] it y of [place] [id number] [place] as BEE?BLEA [id number] Mo [address] MEDICAL OFFICE BUILDING 2021-05-04 2021-05-04 Outpatient R MARTIN, [facility] [id number] Univers 14:40:00 14:40:00 KEAGAN [id number] skyler tom ann marie [facility] 2021-04-28 2021-04-28 [facility] [id number] Univers 10:25:19 12:06:05 Visit Evaristo MAKI [id number] i ty carleen RECINOS [id number] Keovj zapata ERNIEPANCHO [id number] Mo dical NAL 044 Branch BUILDING 2021-04-24 2021-04-24 Outpatient R ANSELMO, [facility] [id number] Univers 14:20:00 14:20:00 KELLY ity o [facility] Results Test Description Test Time Test Comments Results Result Comments Source BASIC METABOLIC PANEL (NA, K, CL, CO2, GLUCOSE, BUN, 2021-05 00:53:14 CREATININE, CA) Test Item Value Reference Range Interpretation Comme nts NA (test code = 7930371971) 138 mmol/L 135-145 K (test code = 0099365364) 3.9 mmol/L 3.5-5.0 CL (test code = 0723207456) 103 mmol/L 98-108 CO2 TOTAL (test code = 3335351759) 27 mmol/L 23-31 AGAP (test code = 3254100206) 2-16 BUN (test code = 0878290438) 11 mg/dL 7-23 GLUCOSE (test code = 7487890174) 111 mg/dL 70-110 H CREATININE (test code = 0.68 mg/dL 0.60-1.25 9948334080) CALCIUM (test code = 8205222144) 9.8 mg/dL 8.6-10.6 eGFR (test code = 3218803629) mL/min/1.73m2 MARY JO (test code = MARY JO) Association of Glomerular Filtration Rate (GFR) and Staging of Kidney Disease* + +-------- + ------+| GFR (mL/min/1.73 m2) ?| With Kidney Damage ?| ?Without Kidney Damage+ +-- + +| ?>90 ?| ?Stage one ?| ? Normal ?+ +------- + -------+| ?60-89 ?| ?Stage two ?| ? Decreased GFR ? + +-------- + ------+| ?30-59 ?| ?Stage three ?| ? Stage three ? + +-------- + ------+| ?15-29 ?| ?Stage four ? | ? Stage four ?+ +------- + -------+| ?<15 (or dialysis) ? ?| ?Stage five ? | ? Stage five ?+ +------- + -------+ *Each stage assumes the associated GFR level has been in effect for at least three months. ?Stages 1 to 5, with or without kidney disease, indicate chronic kidney disease. Notes: Determination of stages one and two (with eGFR >59mL/min/1.73 m2) requires estimation of kidney damage for at least three months as defined by structural or functional abnormalities of the kidney, manifested by either:Pathological abnormalities or Markers of kidney damage (including abnormalities in the composition of the blood or urine or abnormalities in imaging tests). Lab Interpretation (test code = Abnormal 24222-7) [facility] METABOLIC PANEL (NA, K, CL, CO2, GLUCOSE, BUN, CREATININE, CA)2021-06-01 00:53:14 Test Item Value Reference Range Interpretation Comments NA (test code = 138 mmol/L 135-145 [id number]) K (test code = 3.9 mmol/L 3.5-5.0 9982461688) CL (test code = 103 mmol/L 98-108 3711890122) CO2 TOTAL (test code = 27 mmol/L 23-31 4463868675) AGAP (test code = 2-16 0677117013) BUN (test code = 11 mg/dL 7-23 5356140508) GLUCOSE (test code = 111 mg/dL 70-110 H 4111461807) CREATININE (test code = 0.68 mg/dL 0.60-1.25 0509182709) CALCIUM (test code = 9.8 mg/dL 8.6-10.6 8504437472) eGFR (test code = mL/min/1.73m2 9504517607) MARY JO (test code = MARY JO) Association of Glomerular Filtration Rate (GFR) and Staging of Kidney Disease* + --+ --+ ------+| GFR (mL/min/1.73 m2) ?| With Kidney Damage ?| ?Without Kidney Damage+ --------+ --------+ +| ?>90 ?| ?Stage one ?| ? Normal ?+ ---+ ---+ -------+| ?60-89 ?| ?Stage two ?| ? Decreased GFR ? + --+ --+ ------+| ?30-59 ?| ?Stage three ?| ? Stage three ? + --+ --+ ------+| ?15-29 ?| ?Stage four ? | ? Stage four ?+ ---+ ---+ -------+| ?<15 (or dialysis) ? ?| ?Stage five ? | ? Stage five ?+ ---+ ---+ -------+ *Each stage assumes the associated GFR level has been in effect for at least three months. ?Stages 1 to 5, with or without kidney disease, indicate chronic kidney disease. Notes: Determination of stages one and two (with eGFR >59mL/min/1.73 m2) requires estimation of kidney damage for at least three months as defined by structural or functional abnormalities of the kidney, manifested by either:Pathological abnormalities or Markers of kidney damage (including abnormalities in the composition of the blood or urine or abnormalities in imaging tests). Lab Interpretation Abnormal (test code = 90987-0) [facility] WITH [id number] 00:30:43 Test Item Value Reference Range Interpretation Comments WBC (test code = See_Comment [Automated 8158-2) message] The sy stem which generated this result transmitted reference range : 4.20 - 10.70 10*3/?L. The reference range was not used to interpret this result as normal/abnormal . RBC (test code = See_Comment [Automated 972-3) message] The sy stem which generated this result transmitted reference range : 4.26 - 5.52 10*6/?L. The reference range was not used to interpret this result as normal/abnormal . HGB (test code = 15.3 g/dL 12.2-16.4 718-7) HCT (test code = 44.6 % 38.4-49.3 4544-3) MCV (test code = 88.3 fL 81.7-95.6 787-2) MCH (test code = 30.3 pg 26.1-32.7 785-6) MCHC (test code = 34.3 g/dL 31.2-35.0 786-4) RDW-SD (test code = 38.4 fL 38.5-51.6 L 07203-5) RDW-CV (test code = 11.9 % 12.1-15.4 L 788-0) PLT (test code = See_Comment [Automated 777-3) message] The sy stem which generated this result transmitted reference range : 150 - 328 10*3/ ?L. The reference r eliezer was not used to interpret this result as normal/abnormal . MPV (test code = 10.8 fL 9.8-13.0 25798-6) NRBC/100 WBC (test See_Comment [Automat ed code = 0285517446) message] The system which generated this result transmitted reference range : 0.0 - 10.0 /100 WBCs. The refer ence range was not u sed to interpret th is result as normal/abnormal . NRBC x10^3 (test code <0.01 See_Comment [Auto mated = 6608132547) message] The s ystem which generated this result transmitted reference range : 10*3/?L. The reference range was not used to interpret this result as normal/abnormal . GRAN MAT (NEUT) % 46.5 % (test code = 770-8) IMM GRAN % (test code 0.40 % = 2868856481) LYMPH % (test code = 41.9 % 736-9) MONO % (test code = 9.3 % 5905-5) EOS % (test code = 1.4 % 713-8) BASO % (test code = 0.5 % 706-2) GRAN MAT x10^3(ANC) 3.57 10*3/uL 1.99-6.95 (test code = 7229347712) IMM GRAN x10^3 (test 0.03 10*3/uL 0.00-0.06 code = 8234382445) LYMPH x10^3 (test code 3.21 10*3/uL 1.09-3.23 = 731-0) MONO x10^3 (test code 0.71 10*3/uL 0.36-1.02 = 742-7) EOS x10^3 (test code = 0.11 10*3/uL 0.06-0.53 711-2) BASO x10^3 (test code 0.04 10*3/uL 0.01-0.09 = 704-7) Lab Interpretation Abnormal (test code = 10045-2) [facility] WITH [id number] 00:30:43 Test Item Value Reference Range Interpretation Comments WBC (test code = See_Comment [Automated 9090-2) message] The sy stem which generated this result transmitted reference range : 4.20 - 10.70 10*3/?L. The reference range was not used to interpret this result as normal/abnormal . RBC (test code = See_Comment [Automated 789-8) message] The sy stem which generated this result transmitted reference range : 4.26 - 5.52 10*6/?L. The reference range was not used to interpret this result as normal/abnormal . HGB (test code = 15.3 g/dL 12.2-16.4 718-7) HCT (test code = 44.6 % 38.4-49.3 4544-3) MCV (test code = 88.3 fL 81.7-95.6 787-2) MCH (test code = 30.3 pg 26.1-32.7 785-6) MCHC (test code = 34.3 g/dL 31.2-35.0 786-4) RDW-SD (test code = 38.4 fL 38.5-51.6 L 96381-0) RDW-CV (test code = 11.9 % 12.1-15.4 L 788-0) PLT (test code = See_Comment [Automated 777-3) message] The sy stem which generated this result transmitted reference range : 150 - 328 10*3/ ?L. The reference r eliezer was not used to interpret this result as normal/abnormal . MPV (test code = 10.8 fL 9.8-13.0 65506-9) NRBC/100 WBC (test See_Comment [Automat ed code = 6869713915) message] The system which generated this result transmitted reference range : 0.0 - 10.0 /100 WBCs. The refer ence range was not u sed to interpret th is result as normal/abnormal . NRBC x10^3 (test code <0.01 See_Comment [Auto mated = 2099938985) message] The s ystem which generated this result transmitted reference range : 10*3/?L. The reference range was not used to interpret this result as normal/abnormal . GRAN MAT (NEUT) % 46.5 % (test code = 770-8) IMM GRAN % (test code 0.40 % = 2327532358) LYMPH % (test code = 41.9 % 736-9) MONO % (test code = 9.3 % 5905-5) EOS % (test code = 1.4 % 713-8) BASO % (test code = 0.5 % 706-2) GRAN MAT x10^3(ANC) 3.57 10*3/uL 1.99-6.95 (test code = 0587002595) IMM GRAN x10^3 (test 0.03 10*3/uL 0.00-0.06 code = 6600330460) LYMPH x10^3 (test code 3.21 10*3/uL 1.09-3.23 = 731-0) MONO x10^3 (test code 0.71 10*3/uL 0.36-1.02 = 742-7) EOS x10^3 (test code = 0.11 10*3/uL 0.06-0.53 711-2) BASO x10^3 (test code 0.04 10*3/uL 0.01-0.09 = 704-7) Lab Interpretation Abnormal (test code = 78163-0) [facility]"
--- NOTE | 2021-06-05 07:10 | EDPHYS ---
Physician Documentation [facility] Name: Bennett Oconnor Age: 20 yrs Sex: Male : 2000 Arrival Date: 06/05/2021 Time: 06:02 Bed 17 Private MD: ED Physician Valdo Espinoza HPI: 06/05 07:00 This 20 yrs old Male presents to ER via Ambulatory with complaints of Accidental pm1 Overdose - Recent Surgery, prescribed 2 meds and thinks the took 2 of same one. 07:00 The patient presents to the emergency department accidentally took his hydrocodone 2 pm1 hours earlier than scheduled and was afraid that he may have harmed himself as result. Patient is concerned because in the past he was accidentally taking too much ibuprofen on a regular basis and it resulted in some kidney injury. Context: Method: the patient has a confirmed or suspected ingestion, hydrocodone, the OD/poisoning occurred at at home. Associated signs and symptoms: Pertinent positives: chest pain and shortness of breath after taking hydrocodone early this AM. Severity of symptoms: in the emergency department the symptoms have resolved. The patient has been recently seen by a physician: with different complaint(s), Appendectomy last week and prescribed ibuprofen and hydrocodone alternating for pain. Historical: - Allergies: 06:22 No Known Allergies; lp1 - Home Meds: 06:22 Albuterol Inhl [Active]; lp1 - PMHx: 06:22 None; lp1 - PSHx: 06:22 Appendectomy; lp1 - Immunization history:: Adult Immunizations up to date. - Social history:: Smoking status: Reported history of juuling and/or vaping. ROS: 06:22 Constitutional: Negative for fever, chills, and weight loss, Cardiovascular: Negative pm1 for chest pain, palpitations, and edema, Respiratory: Negative for shortness of breath, cough, wheezing, and pleuritic chest pain, Abdomen/GI: Negative for abdominal pain, nausea, vomiting, diarrhea, and constipation, Back: Negative for injury and pain, MS/Extremity: Negative for injury and deformity, Skin: Negative for injury, rash, and discoloration, Neuro: Negative for headache, weakness, numbness, tingling, and seizure. 06:22 All other systems are negative. Exam: 06:22 Constitutional: This is a well developed, well nourished patient who is awake, alert, pm1 and in no acute distress. Head/Face: Normocephalic, atraumatic. 06:22 Skin: Warm, dry with normal turgor. Normal color with no rashes, no lesions, and no evidence of cellulitis. MS/ Extremity: Pulses equal, no cyanosis. Neurovascular intact. Full, normal range of motion. 06:22 Cardiovascular: Exam negative for acute changes, Rate: normal, Rhythm: regular, Pulses: no pulse deficits are appreciated. 06:22 Respiratory: Exam negative for acute changes, respiratory distress, shortness of breath, Breath sounds: are clear throughout. 06:22 Neuro: Exam negative for acute changes, Orientation: is normal, Mentation: is normal, Motor: is normal, moves all fours, Gait: is steady, at a normal pace, without difficulty. Vital Signs: 06:18 Weight 79.38 kg (R); Height 6 ft. 0 in. (182.88 cm); lp1 06:29 BP 138 / 71; Pulse 83; Resp 20; Temp 98; Pulse Ox 98% on R/A; mk 07:30 BP 129 / 63; Pulse 92; Resp 18; Pulse Ox 99% on R/A; tw2 06:18 Body Mass Index 23.73 (79.38 kg, 182.88 cm) lp1 MDM: 06:46 Patient medically screened. pm1 07:00 Data reviewed: vital signs. Data interpreted: Pulse oximetry: on room air is 98 %. pm1 Interpretation: normal. 07:00 Refusal of service: The patient/guardian displays adequate decision making capability pm1 and despite a detailed discussion of alternatives, benefits, risks, and consequences refuses: all lab tests, all X-rays, EKG. Patient refused workup for his complaint of chest pain and shortness of breath. He feels that he got anxious from taking his pain medication early and was worried it will cause issues similar to when he was taking too much ibuprofen in the past. 07:00 Counseling: I had a detailed discussion with the patient and/or guardian regarding: the pm1 historical points, exam findings, and any diagnostic results supporting the discharge/admit diagnosis, the need for outpatient follow up, to return to the emergency department if symptoms worsen or persist or if there are any questions or concerns that arise at home. Administered Medications: No medications were administered Disposition: 06/06 01:58 Co-signature as Attending Physician, Valdo Espinoza MD. [email or web address] Disposition Summary: 06/05/21 07:09 Discharge Ordered Location: Home pm1 Problem: new pm1 Symptoms: have improved pm1 Condition: Stable pm1 Diagnosis - Adverse effect of unspecified drugs, medicaments and biological substances pm1 Followup: pm1 - With: Emergency Department - When: As needed - Reason: Worsening of condition Followup: pm1 - With: Private Physician - When: 2 - 3 days - Reason: Recheck today's complaints, Continuance of care, Re-evaluation by your physician Discharge Instructions: - Discharge Summary Sheet pm1 - Accidental Drug Poisoning, Adult pm1 Forms: - Medication Reconciliation Form pm1 - Thank You Letter pm1 - Antibiotic Education pm1 - Prescription Opioid Use pm1 - Work release form tw2 Signatures: Madyson Kearns RN RN lp1 Norris Brandt, [employer] SAL[employer] AUDIT CLERK pm1 Valdo Espinoza MD MD [email or web address] Corrections: (The following items were deleted from the chart) 06/05 06:22 06:22 Home Meds: None; lp1 lp1
--- NOTE | 2021-06-05 07:10 | ER ---
Nurse's Notes [facility] Name: Bennett Oconnor Age: 20 yrs Sex: Male : 2000 Arrival Date: 06/05/2021 Time: 06:02 Bed 17 Private MD: Diagnosis: Adverse effect of unspecified drugs, medicaments and biological substances Presentation: 06/05 06:18 Chief complaint: Patient states: Reports appendectomy on 06/01/21, took [place]all 5-325 1 lp1 tab at 2000 last night, accidentally took 2nd dose at 0030; Med is prescribed as Q6h PRN; Reports feeling short of breath. Coronavirus screen: At this time, the client does not indicate any symptoms associated with coronavirus-19. Ebola Screen: No symptoms or risks identified at this time. Risk Assessment: Do you want to hurt yourself or someone else? Patient reports no desire to harm self or others. Onset of symptoms was June 05, 2021. 06:18 Method Of Arrival: Ambulatory lp1 06:18 Acuity: KERRIE 3 lp1 06:29 Initial Sepsis Screen: Does the patient meet any 2 criteria? No. Patient's initial mk sepsis screen is negative. Does the patient have a suspected source of infection? No. Patient's initial sepsis screen is negative. Triage Assessment: 06:23 General: Appears in no apparent distress. Behavior is anxious. Neuro: Level of lp1 Consciousness is awake, alert, obeys commands. Respiratory: Respiratory effort is even. Derm: Skin is pink, warm \\T\\ dry. Historical: - Allergies: 06:22 No Known Allergies; lp1 - Home Meds: 06:22 Albuterol Inhl [Active]; lp1 - PMHx: 06:22 None; lp1 - PSHx: 06:22 Appendectomy; lp1 - Immunization history:: Adult Immunizations up to date. - Social history:: Smoking status: Reported history of juuling and/or vaping. Screenin:22 Abuse screen: Denies threats or abuse. Denies injuries from another. Nutritional lp1 screening: No deficits noted. Tuberculosis screening: No symptoms or risk factors identified. Fall Risk None identified. Assessment: 07:38 Reassessment: Patient appears in no apparent distress at this time. Patient and/or tw2 family updated on plan of care and expected duration. Pain level reassessed. pt states "i think i just worked myself up about it, i dont want blood work done", provider notified. pt wants to be discharged at this time. Vital Signs: 06:18 Weight 79.38 kg (R); Height 6 ft. 0 in. (182.88 cm); lp1 06:29 BP 138 / 71; Pulse 83; Resp 20; Temp 98; Pulse Ox 98% on R/A; mk 07:30 BP 129 / 63; Pulse 92; Resp 18; Pulse Ox 99% on R/A; tw2 06:18 Body Mass Index 23.73 (79.38 kg, 182.88 cm) lp1 ED Course: 06:02 Patient arrived in ED. 06:11 Norris Brandt NP is PHCP. pm1 06:11 Valdo Espinoza MD is Attending Physician. pm1 06:19 Kathy Valentine RN is Primary Nurse. mk 06:22 Triage completed. lp1 06:22 Arm band placed on. lp1 07:30 Primary Nurse role handed off by Kathy Valentine RN tw2 07:30 Syeda Salamanca RN is Primary Nurse. tw2 07:38 No provider procedures requiring assistance completed. Patient did not have IV access tw2 during this emergency room visit. Administered Medications: No medications were administered Outcome: 07:09 Discharge ordered by . pm1 07:39 Discharged to home ambulatory, with significant other. tw2 07:39 Condition: stable 07:39 Discharge instructions given to patient, significant other, Instructed on discharge instructions, follow up and referral plans. medication usage, safety practices, Demonstrated understanding of instructions, follow-up care, medications. 07:39 Patient left the ED. tw2 Signatures: Madyson Kearns RN RN lp1 Norris Brandt NP MOTORCYCLE DELIVERY DRIVER pm1 Syeda Salamanca RN RN tw2 Kim Marmolejo Kathy Valentine RN RN mk Corrections: (The following items were deleted from the chart) 06:22 06:22 Home Meds: None; lp1 lp1
[2021-06-05 07:44] VITALS: TEMP 98
[2021-06-05 07:46] VITALS: BP 129/63; O2SAT 99
== END 2021-06-05 07:39 | disposition home or self-care (01) ==
LOC: ER 06:00
DX: T40.2X1A Poisoning by other opioids, accidental (unintentional), initial encounter (principal); Y92.019 Unspecified place in single-family (private) house as the place of occurrence of the external cause
CPT/HCPCS: 99281

== ENCOUNTER 2021-08-18 22:52 | Emergency (ER) | payer OTHER ==
--- OUTSIDE RECORDS SUMMARY | 2021-08-18 22:55 | XMS REPORT | Continuity of Care Document ---
:2000 Author Organization [facility] t Address [address] [place] [address] Care Team Providers Name Role Phone Aileen RENDON Primary Care Physician Eran RENDON, K.H. Attending Clinician Payers Payer Name Policy Type Policy Number Effective Date Expiration Date S ource Problems Condition Condition Condition Status Onset Resolution Last Treating Co mments Source Name Details Category Date Date Treatment Clinician Date Acute Acute Disease Active Univers appendicit appendicit 1-11 it y of is is 00:00: [place] 00 [facility] Branch Screening Screening Disease Active 2020-05 Uni vers for for 2- ity of diabetes diabetes 00:00: [place] mellitus mellitus 00 Medica l Branch Vapes Vapes Disease Active 2020-05 Univers nicotine nicotine 06-29 [place] 00 [facility] Branch Marijuana Marijuana Disease Active 2020-05 Uni vers use use 2- ity of 00:00: [place] 00 [facility] Branch Need for Need for Disease Active 2020-05 Unive rs hepatitis hepatitis 2- ity of C C 00:00: [place] screening screening 00 [facility] test test Branch Anxiety Anxiety Disease Active 2020-05 Univers attack attack 2-09 ity of 00:00: [place] 00 [facility] Branch PTSD PTSD Disease Active 2017-05 Univers [...] Formattin ity of 00:00: g of this [place] 00 note Medical might be Branch different from the original. 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 Small secundum ASD vs. PFO Tachycardi Tachycardi Disease Active Overview : Univers a a 1-01 Formattin ity of 00:00: g of this [place] 00 note Medical might be Branch different from the original. Has had evaluatio n by [facility] Cardiolog y - Dr. Patterson - 8. Palpitati ons history, normal EKG, Echo - with small secundum ASD/PFO H/O H/O Disease Active Univers seasonal seasonal [place] [facility] Asthma Asthma Disease Active Overview: Univer s Formattin ity of g of this [place] note Medical might be Branch different from the original. mild intermitt ent Anxiety Anxiety Disease Active Overview: Univ ers and and Formattin ity of depression depression g of this [place] note Medical might be Branch different from the original. Follows with Dr. Street - psychiatr y Allergies, Adverse Reactions, Alerts This patient has no known allergies or adverse reactions. Social History Social Habit Start Date Stop Date Quantity Comments Source Exposure to Not sure [facility] SARS-CoV-2 [facility] (event) Branch Alcohol intake 2021-06-02 2021-06-02 Current University of 00:00:00 00:00:00 non-drinker of [facility] alcohol (finding) Branch Tobacco use and 2021-05-31 2021-05-31 Current user Univers ity of exposure 00:00:00 00:00:00 [facility] Branch Education 2021-05-31 2021-05-31 10 University of 00:00:00 00:00:00 [facility] Tobacco Comment 2021-05-31 2021-05-31 Vape/ Marijuana Univ ersity of 00:00:00 00:00:00 last use [facility] 05/31/2020 Branch Sex Assigned At [birth year] Universit y of 00:00:00 00:00:00 [facility] Smoking Status Start Date Stop Date Source Current every day smoker 2021-05-31 00:00:00 Uni versity of [facility] Medications Ordered Filled Start Stop Current Ordering Indication Dosage Frequency Signature Comments Components Source Medication Medication Date Date Medication? Clinician (SIG) Name Name HYDROcodone Yes [id number] 1{tbl} Take 1 Un darvin -acetaminop 1-13 tablet by ity of hen 5-325 00:00: mouth [place] mg tablet 00 every 6 Medical (six) Branch hours as needed for Pain (scale 7-10). Indication s: acute pain SERTraline 2020-05 Yes [id number] 25mg Take 1 Univers 25 mg 2-09 tablet by ity of tablet 00:00: mouth [place] 00 daily. Medical Branch traZODone 2020-05 Yes [id number] 50mg Take 1 U nivers 50 mg 2-09 tablet by ity of tablet 00:00: mouth at [place] 00 bedtime. Medical Branch VIOS Milady 2020-05 Yes 10mg Take 10 mg Un darvin 0-21 by mouth. ity of 00:00: [place] 00 Medical Branch albuterol 2020-05 Yes Univers 2.5 mg /3 0-21 ity of mL (0.083 00:00: [place] %) 00 Medical nebulizer Branch solution albuterol Yes [id number] 2{puff} Inhale 2 Univers (PROAIR 5-24 Puffs ity of HFA) 90 00:00: every 4 [place] mcg/actuati 00 (four) Medica l on inhaler hours as Branc h needed for Wheezing or Shortness of Breath. Immunizations Ordered Immunization Filled Immunization Date Status Commen ts Source Name Name Influenza Virus 2018-03-13 Completed Universit y of Vaccine Quad IM 3+ 00:00:00 [facility] Branch HPV9 2018-02-08 Completed University of 00:00:00 [facility] Meningococcal 2018-02-08 Completed University [facility] 00:00:00 [facility] sharee (groups A, C, Y and Branc h W-135) conjugate vaccine (MCV4P) TDAP (ADACEL) VACCINE 2015-01-12 Completed Uni versity of 00:00:00 [facility] HPV 2015-01-12 Completed University of 00:00:00 [facility] Meningococcal Vaccine 2015-01-12 Completed Uni versity of 00:00:00 [facility] Varicella 2015-01-12 Completed University of (varivax)(chicken 00:00:00 [place] M edical pox) Branch Varicella 2006-10-27 Completed University of (varivax)(chicken 00:00:00 [place] M edical pox) Branch Influenza Virus 2006-03-17 Completed Universit y of Vaccine 00:00:00 [facility] DTAP 2005-10-12 Completed University of 00:00:00 [facility] HEPATITIS A 2005-10-12 Completed University of 00:00:00 [facility] MMR 2005-10-12 Completed University of 00:00:00 [facility] Polio (IPV/OPV) 2005-10-12 Completed Universit y of 00:00:00 [facility] Influenza Virus 2005-04-08 Completed Universit y of Vaccine 00:00:00 [facility] HIB 4 Dose Schedule 2004-10-04 Completed Unive rsity of 00:00:00 [facility] HEPATITIS A 2004-10-04 Completed University of 00:00:00 [facility] Polio (IPV/OPV) 2004-10-04 Completed Universit y of 00:00:00 [facility] Pneumococcal 7 2004-10-04 Completed University of Conjugate, PCV7 00:00:00 [place] Med ical (Prevnar7) Branch DTAP 2003-01-06 Completed University of 00:00:00 [facility] HIB 4 Dose Schedule 2003-01-06 Completed Unive rsity of 00:00:00 [facility] Polio (IPV/OPV) 2003-01-06 Completed Universit y of 00:00:00 [facility] Pneumococcal 7 2003-01-06 Completed University of Conjugate, PCV7 00:00:00 [place] Med ical (Prevnar7) Branch MMR 2002-10-09 Completed University of 00:00:00 [facility] Varicella 2002-10-09 Completed University of (varivax)(chicken 00:00:00 [facility] edical pox) Branch Pneumococcal 7 2002-10-09 Completed University of Conjugate, PCV7 00:00:00 [place] Med ical (Prevnar7) Branch Pneumococcal 7 2002-07-03 Completed University of Conjugate, PCV7 00:00:00 [place] Med ical (Prevnar7) Branch DTAP 2002-04-03 Completed University of 00:00:00 [facility] HIB 4 Dose Schedule 2002-04-03 Completed Unive rsity of 00:00:00 [facility] Branch Hep B, Adol or Pedi 2002-04-03 Completed Unive rsity of Dosage 00:00:00 [facility] Branch DTAP 2002-02-06 Completed University of 00:00:00 [facility] HIB 4 Dose Schedule 2002-02-06 Completed Unive rsity of 00:00:00 [facility] Polio (IPV/OPV) 2002-02-06 Completed Universit y of 00:00:00 [facility] Branch DTAP 2001 Completed University of 00:00:00 [facility] HIB 4 Dose Schedule 2001 Completed Unive rsity of 00:00:00 [facility] Hep B, Adol or Pedi 2001 Completed Unive rsity of Dosage 00:00:00 [facility] Polio (IPV/OPV) 2001 Completed Universit y of 00:00:00 [facility] Hep B, Adol or Pedi 2001 Completed Unive rsity of Dosage 00:00:00 [facility] Vital Signs Vital Name Observation Time Observation Value Comments Source Systolic blood 2021-08-18 19:06:00 108 mm[Hg] Univer sity of [place] pressure [facility] Diastolic blood 2021-08-18 19:06:00 70 mm[facility]Hg] [facility] [place] [facility] Heart rate 2021-08-18 19:06:00 105 /min [facility] Body height 2021-08-18 19:06:00 180.3 cm [facility] Body weight 2021-08-18 19:06:00 79.379 kg [facility] BMI 2021-08-18 19:06:00 24.41 kg/m2 [facility] Body mass index 2021-08-18 19:06:00 66.71 % [facility] [place] Per age and sex Oxygen saturation 2021-08-18 19:06:00 99 /min [facility] Arter[facility] Medical Br anch by Pulse oximetry Procedures Procedure Date / Time Performed Performing Clinician [facility] e HB ECG ROUTINE & 2021-08-18 19:12:47 [facility] Barillas [facility] En[facility]ters Start End Encounter Admission Attending Care Care Encounter Source Date/Time Date/Time Type Type Clinicians Facility Department ID 2021-08-18 2021-08-18 Office MARYELLEN Barillas [id number] Univers 14:00:00 16:08:46 Visit Gwen Raymond [place] [id number] [facility] [id number] Afshin WILEY [id number] Ut dical NAL 059 Branch BUILDING Results This patient has no known results.
[2021-08-19] MEDS ORDERED: AMOX/K CLAV 875 MG TAB ONE (00:56)
[2021-08-19] MEDS ORDERED: TETANUS & DIPHTHERIA TOX,ADULT 0.5 ML VIAL ONE (00:57)
--- NOTE | 2021-08-19 03:49 | ER ---
Nurse's Notes [facility] Name: Bennett Oconnor Age: 20 yrs Sex: Male : 2000 Arrival Date: 08/18/2021 Time: 22:54 Bed 26 Private MD: Diagnosis: Bitten by other mammals, initial encounter-possum;Puncture wound without foreign body of left index finger without damage to nail, initial encounter Presentation: 08/18 23:25 Chief complaint: Patient states: "I was trying to save a baby possum from a cat and it tw5 bite me. It was just a little puncture, but it broke skin. I freaked out and poured bleach on the wound because I didn't have anything else. I also put some Neosporin on it. ". Coronavirus screen: Vaccine status: Patient reports being unvaccinated. Ebola Screen: Patient negative for fever greater than or equal to 101.5 degrees Fahrenheit, and additional compatible Ebola Virus Disease symptoms Patient denies exposure to infectious person. Patient denies travel to an Ebola-affected area in the 21 days before illness onset. Initial Sepsis Screen: Does the patient meet any 2 criteria? No. Patient's initial sepsis screen is negative. Does the patient have a suspected source of infection? No. Patient's initial sepsis screen is negative. Risk Assessment: Do you want to hurt yourself or someone else? Patient reports no desire to harm self or others. Onset of symptoms was August 18, 2021 at 10:30. 23:25 Method Of Arrival: Ambulatory tw5 23:25 Acuity: KERRIE 4 tw5 Triage Assessment: 23:27 Bite description: bite sustained to palmar aspect of middle phalanx of left index tw5 finger is from animal, by possum, animal information: vaccination(s) is not applicable. General: Appears in no apparent distress. Behavior is calm, cooperative, appropriate for age. Pain: Denies pain. Historical: - Allergies: 23:27 No Known Allergies; tw5 - Home Meds: 23:27 Albuterol Inhl [Active]; tw5 - PMHx: 23:27 Asthma; tw5 - PSHx: 23:27 Appendectomy; surgery on left hand; tw5 - Immunization history:: Flu vaccine is up to date. - Social history:: Smoking status: Reported history of juuling and/or vaping. Screenin/01 01:09 Abuse screen: Denies threats or abuse. Nutritional screening: No deficits noted. ag7 Tuberculosis screening: No symptoms or risk factors identified. Fall Risk No fall in past 12 months (0 pts). No secondary diagnosis (0 pts). No IV (0 pts). Ambulatory Aid- None/Bed Rest/Nurse Assist (0 pts). Gait- Normal/Bed Rest/Wheelchair (0 pts) Mental Status- Oriented to own ability (0 pts). Total Spangler Fall Scale indicates No Risk (0-24 pts). Assessment: 00:03 General: Appears in no apparent distress. well groomed, well developed, Behavior is ag7 calm, cooperative, appropriate for age. Pain: Denies pain. Neuro: Level of Consciousness is awake, alert, obeys commands, Oriented to Appropriate for age Export Agent are equal bilaterally. Cardiovascular: Heart tones S1 S2 present Capillary refill < 3 seconds in bilateral fingers Patient's skin is warm and dry. Respiratory: Airway is patent Trachea midline Respiratory effort is even, unlabored, Respiratory pattern is regular, symmetrical, Breath sounds are clear bilaterally. Derm: Skin has skin tears on LEFT HAND SECOND FINGER PHALANGEAL AREA NO ACTIVE BLEEDING Skin is pink, warm \\T\\ dry. 00:46 General: Antonia from animal control notified of animal bite. . tw5 01:02 Reassessment: No changes from previously documented assessment. ag7 Vital Signs: 08/18 23:25 BP 117 / 67; Pulse 76; Resp 18; Temp 97.7(O); Pulse Ox 100% on R/A; Weight 79.38 kg; tw5 Height 6 ft. 0 in. (182.88 cm); Pain 0/10; 08/19 00:03 BP 120 / 78; Pulse 87; Resp 16 S; Pulse Ox 97% on R/A; Pain 0/10; ag7 01:08 BP 128 / 76; Pulse 72 MON; Resp 16 S; Pulse Ox 100% ; Pain 0/10; ag7 08/18 23:25 Body Mass Index 23.73 (79.38 kg, 182.88 cm) tw5 ED Course: 08/18 22:54 Patient arrived in ED. kc5 23:27 Triage completed. tw5 23:27 Arm band placed on right wrist. tw5 23:57 Yon, Felicia, RN is Primary Nurse. ag7 08/19 00:34 Tulio Perez PA is PHCP. cp 00:34 Tulio Layne MD is Attending Physician. cp 01:09 Placed in gown. Bed in low position. Call light in reach. ag7 01:09 No provider procedures requiring assistance completed. ag7 01:10 Patient did not have IV access during this emergency room visit. ag7 Administered Medications: 00:59 Drug: Augmentin (Amoxicillin-Clavulanate) 875 mg Route: PO; ag7 01:10 Follow up: Response: Medication administered at discharge. ag7 00:59 Drug: Tetanus-Diphtheria Toxoid Adult 0.5 ml {Product Control And Logistics Analyst: [employer]. Exp: ag7 10/08/2022. Lot #: [id number]. } Route: IM; Site: right deltoid; 01:11 Follow up: Response: Medication administered at discharge. ag7 Outcome: 00:53 Discharge ordered by . cp 01:10 Discharged to home ambulatory. ag7 01:10 Condition: stable 01:10 Discharge instructions given to patient, Instructed on discharge instructions, follow up and referral plans. medication usage, Demonstrated understanding of instructions, follow-up care, medications, Prescriptions given X 1. 01:11 Patient left the ED. ag7 Signatures: Tulio Perez PA PA cp Wood, Tiffany tw5 Yenifer Treviño kc5 Felicia Marvin, RN RN ag7
--- NOTE | 2021-08-19 03:49 | EDPHYS ---
Physician Documentation [facility] Name: Bennett Oconnor Age: 20 yrs Sex: Male : 2000 Arrival Date: 08/18/2021 Time: 22:54 Bed 26 Private MD: MINI Physician Tulio Layne HPI: 08/19 00:44 This 20 yrs old Male presents to ER via Ambulatory with complaints of Animal Bite - cp POSSUM. 00:44 The patient was bitten on the middle phalanx left index finger, by baby possum, while cp trying to stop animals from fighting, outdoors. Onset: The symptoms/episode began/occurred just prior to arrival. Animal information: Patient/Caregiver unable to provide information related to the animal. Animal control has been notified. Secondary to the bite the patient reports multiple puncture wounds, that are superficial. Associated signs and symptoms: The patient has no apparent associated signs or symptoms. Historical: - Allergies: 08/18 23:27 No Known Allergies; tw5 - Home Meds: 23:27 Albuterol Inhl [Active]; tw5 - PMHx: 23:27 Asthma; tw5 - PSHx: 23:27 Appendectomy; surgery on left hand; tw5 - Immunization history:: Flu vaccine is up to date. - Social history:: Smoking status: Reported history of juuling and/or vaping. ROS: 08/19 00:46 Constitutional: Negative for body aches, chills, fever, poor PO intake. cp Skin: Positive for puncture, of the middle phalanx left index finger. Neuro: Negative for numbness, tingling, weakness. All other systems are negative. Exam: 00:47 Head/Face: Normocephalic, atraumatic. cp 00:47 Constitutional: The patient appears in no acute distress, alert, awake, non-toxic, well developed, well nourished. 00:47 Cardiovascular: Rate: normal. 00:47 Respiratory: the patient does not display signs of respiratory distress, Respirations: normal, no use of accessory muscles, no retractions, labored breathing, is not present. 00:47 Musculoskeletal/extremity: Extremities: grossly normal except: superficial puncture wounds noted ulna and radial sides of middle phalanx left index finger with no erythema, no active bleeding, no swelling. Vital Signs: 08/18 23:25 BP 117 / 67; Pulse 76; Resp 18; Temp 97.7(O); Pulse Ox 100% on R/A; Weight 79.38 kg; tw5 Height 6 ft. 0 in. (182.88 cm); Pain 0/10; 08/19 00:03 BP 120 / 78; Pulse 87; Resp 16 S; Pulse Ox 97% on R/A; Pain 0/10; ag7 01:08 BP 128 / 76; Pulse 72 MON; Resp 16 S; Pulse Ox 100% ; Pain 0/10; ag7 08/18 23:25 Body Mass Index 23.73 (79.38 kg, 182.88 cm) tw5 MDM: 00:38 Patient medically screened. cp 00:49 Data reviewed: vital signs, nurses notes, and as a result, I will discharge patient. cp Counseling: I had a detailed discussion with the patient and/or guardian regarding: the historical points, exam findings, and any diagnostic results supporting the discharge/admit diagnosis, to return to the emergency department if symptoms worsen or persist or if there are any questions or concerns that arise at home. Special discussion: I discussed in detail with the patient the higher chance of wound infection based on his presenting history. 08/19 00:41 Order name: Wound Care; Complete Time: 01:02 cp Administered Medications: 00:59 Drug: Augmentin (Amoxicillin-Clavulanate) 875 mg Route: PO; ag7 01:10 Follow up: Response: Medication administered at discharge. ag7 00:59 Drug: Tetanus-Diphtheria Toxoid Adult 0.5 ml {Cotton Ball Machine Tender: Hands. Exp: ag7 10/08/2022. Lot #: [id number]. } Route: IM; Site: right deltoid; 01:11 Follow up: Response: Medication administered at discharge. ag7 Disposition Summary: 08/19/21 00:53 Discharge Ordered Location: Home cp Problem: new cp Symptoms: have improved cp Condition: Stable cp Diagnosis - Bitten by other mammals, initial encounter - possum cp - Puncture wound without foreign body of left index finger without damage to nail, cp initial encounter Followup: cp - With: Private Physician - When: 1 - 2 days - Reason: Worsening of condition Discharge Instructions: - Discharge Summary Sheet cp - Puncture Wound cp - Animal Bite, Adult cp Forms: - Medication Reconciliation Form cp - Thank You Letter cp - Antibiotic Education cp - Prescription Opioid Use cp Prescriptions: - Augmentin 875-125 mg Oral Tablet - take 1 tablet by ORAL route every 12 hours for 10 days; 20 tablet; Refills: 0, cp Product Selection Permitted Signatures: Tulio Perez PA PA cp Wood, Tiffany tw5 Felicia Marvin RN RN ag7
[2021-08-19 05:14] VITALS: TEMP 97.7
[2021-08-19 05:17] VITALS: BP 128/76; O2SAT 100
== END 2021-08-19 01:11 | disposition home or self-care (01) ==
LOC: ER 22:52
DX: S61.231A Puncture wound without foreign body of left index finger without damage to nail, initial encounter (principal); W64.XXXA Exposure to other animate mechanical forces, initial encounter; Z23 Encounter for immunization; J45.909 Unspecified asthma, uncomplicated
CPT/HCPCS: 90471; 90714; 99283

== ENCOUNTER 2022-12-06 18:43 | Emergency (ER) | payer SELFPAY ==
--- OUTSIDE RECORDS SUMMARY | 2022-12-06 18:47 | XMS REPORT | Continuity of Care Document ---
:2000 Author Organization [facility] t Address [address] [place] [address] [address] [place] [address] Care Team Providers Name Role Phone EVARISTO GALLAGHER Primary Care Physician Unavailable PAIGE FAYE Attending Clinician Unavailable Doctor Unassigned, [place] Attending Clinician Unavailable Pagie Faye MD Attending Clinician RENAE HENDERSON Attending Clinician Unavailable FREDDY THAKKAR Attending Clinician Unavailable Dwain Roberson Attending Clinician Freddy Thakkar MD Attending Clinician Roula Franks MD Attending Clinician Clint Samaniego CRNA Attending Clinician Ramón Galan MD Attending Clinician EVARISTO GALLAGHER Attending Clinician Unavailable Patricia Feliciano Attending Clinician Pob, Ad[facility] Lab Main Attending Clinician Unavailable Evaristo Gallagher MD Attending Clinician KELLY BRIONES Attending Clinician Unavailable Kristin Chavira RN Attending Clinician Unavailable MIGUEL ANGEL MARTIN Attending Clinician Unavailable Only, Ang Db Test Attending Clinician Unavailable Unknown, Attending Attending Clinician Unavailable Provider, Ang Db Urgent [facility] Attending Clinician Unavailable PATRICIA MALAVE Attending Clinician Unavailable IVELISSE VILLAVICENCIO Attending Clinician Unavailable FREDDY THAKKAR Admitting Clinician Unavailable Freddy Thakkar MD Admitting Clinician Payers Payer Name Policy Type Policy Number Effective Date Expiration Date Edward COSTAS [id number] 2016 HEALTH 00:00:00 Problems Condition Condition Condition Status Onset Resolution Last Treating Co mments Source Name Details Category Date Date Treatment Clinician Date Acute Acute Disease Active Univers appendicit appendicit 1-11 it y of is is 00:00: [place] 00 Medical Branch Screening Screening Disease Active 2020-05 Uni vers for for 2 ity of diabetes diabetes 00:00: [place] mellitus mellitus 00 Medica l Branch Vapes Vapes Disease Active 2020-05 Univers nicotine nicotine 06-29 [place] of [place] substance 00 [facility] sharee Branch Marijuana Marijuana Disease Active 2020-05 Uni vers use use 06-29 ity of 00:00: [place] 00 Medical Branch Need for Need for Disease Active 2020-05 Unive rs hepatitis hepatitis 06-29 ity of C C 00:00: [place] screening screening 00 [facility] test test Branch Anxiety Anxiety Disease Active 2020-05 Univers attack attack 06-29 ity of 00:00: [place] 00 Medical Branch [...] Formattin ity of 00:00: g of this [place] 00 note Medical might be Branch different from the original. 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 Has had evaluatio n by [facility] Cardiolog cierra - Dr. Patterson - 8. Palpitati ons history, normal EKG, Echo - with small secundum ASD/PFO H/O H/O Disease Active Univers seasonal seasonal [place] Asthma Asthma Disease Active Overview: Univer s Formattin ity of g of this [place] note Medical might be Branch different from the original. mild intermitt ent Anxiety Anxiety Disease Active Overview: Univ ers and and Formattin ity of depression depression g of this [place] note Medical might be Branch different from the original. Follows with Dr. Street - psychiatr y Allergies, Adverse Reactions, Alerts Allergy Allergy Status Severity Reaction(s) Onset Inactive Treating Comm ents Source Name Type Date Date Clinician NO KNOWN Drug Active Univers ALLERGIE Class ity of S [facility] Social History Social Habit Start Date Stop Date Quantity Comments Source Exposure to Not sure [facility] SARS-CoV-2 [facility] (event) Branch Alcohol intake 2021-06-02 2021-06-02 Current [facility] 00:00:00 00:00:00 non-drinker of [facility] alcohol (finding) [place] Tobacco use and 2021-05-31 2021-05-31 Current user [facility] ity of exposure 00:00:00 00:00:00 [facility] Education 2021-05-31 2021-05-[address] [place] [address] of 00:00:00 00:00:00 [facility] Tobacco Comment 2021-05-31 2021-05-31 Vape/ Marijuana [facility] ersity of 00:00:00 00:00:00 last use [facility] 05/31/2020 Branch Sex Assigned At [birth year] Universit y of 00:00:00 00:00:00 [facility] Smoking Status Start Date Stop Date Source Current every day smoker 2021-05-31 00:00:00 Uni versity of [facility] Medications Ordered Filled Start Stop Current Ordering Indication Dosage Frequency Signature Comments Components Source Medication Medication Date Date Medication? Clinician (SIG) Name Name HYDROcodone Yes [id number] 1{tbl} Take 1 Un darvin -acetaminop 1-13 tablet by ity of hen 5-325 00:00: mouth [place] mg tablet 00 every 6 Medical (six) Branch hours as needed for Pain (scale 7-10). Indication s: acute pain HYDROcodone Yes [id number] 1{tbl} Take 1 Un darvin -acetaminop 1-13 tablet by ity of hen 5-325 00:00: mouth [place] mg tablet 00 every 6 Medical (six) Branch hours as needed for Pain (scale 7-10). Indication s: acute pain traZODone 2020-05 Yes [id number] 50mg Take 1 U nivers 50 mg 2-09 tablet by ity of tablet 00:00: mouth at [place] [address] bedtime. Medical Branch SERTraline 2020-05 Yes [id number] 25mg Take 1 Univers 25 mg 2-09 tablet by ity of tablet 00:00: mouth [place] 00 daily. Medical Branch traZODone 2020-05 Yes [id number] 50mg Take 1 U nivers 50 mg 2-09 tablet by ity of tablet 00:00: mouth at [place] [address] bedtime. Medical Branch SERTraline 2020-05 Yes [id number] 25mg Take 1 Univers 25 mg 2-09 tablet by ity of tablet 00:00: mouth [place] 00 daily. Medical Branch VIOS Milady 2020-05 Yes 10mg Take 10 mg Un darvin 0-21 by mouth. ity of 00:00: [place] 00 Medical Branch albuterol 2020-05 Yes Univers 2.5 mg /3 0-21 ity of mL (0.083 00:00: [place] %) 00 Medical nebulizer Branch solution VIOS Milady 2020-05 Yes 10mg Take 10 mg Un darvin 0-21 by mouth. ity of 00:00: [place] 00 Medical Branch albuterol 2020-05 Yes Univers 2.5 mg /3 0-21 ity of mL (0.083 00:00: [place] %) 00 Medical nebulizer Branch solution albuterol Yes [id number] 2{puff} Inhale 2 Univers (PROAIR 5-24 Puffs ity of HFA) 90 00:00: every 4 [place] mcg/actuati 00 (four) Medica l on inhaler hours as Branc h needed for Wheezing or Shortness of Breath. albuterol Yes [id number] 2{puff} Inhale 2 Univers (PROAIR 5-24 Puffs ity of HFA) 90 00:00: every 4 [place] mcg/actuati 00 (four) Medica l on inhaler hours as Branc h needed for Wheezing or Shortness of Breath. Immunizations Ordered Immunization Filled Immunization Date Status Commen ts Source Name Name Influenza Virus 2018-03-13 Completed Universit y of Vaccine Quad IM 3+ 00:00:00 [place] Medical YRS Branch Influenza Virus 2018-03-13 Completed Universit y of Vaccine Quad IM 3+ 00:00:00 [facility] Branch HPV9 2018-02-08 Completed University of 00:00:00 [facility] Meningococcal 2018-02-08 Completed University of Polysaccharide 00:00:00 [place] Medi sharee (groups A, C, Y and Branc h W-135) conjugate vaccine (MCV4P) HPV9 2018-02-08 Completed University of 00:00:00 [facility] Meningococcal 2018-02-08 Completed University of Polysaccharide 00:00:00 [place] Medi sharee (groups A, C, Y and Branc h W-135) conjugate vaccine (MCV4P) TDAP (ADACEL) VACCINE 2015-01-12 Completed Uni versity of 00:00:00 [facility] HPV 2015-01-12 Completed University of 00:00:00 [facility] Meningococcal Vaccine 2015-01-12 Completed Uni versity of 00:00:00 [facility] Varicella 2015-01-12 Completed University of (varivax)(chicken 00:00:00 [place] M edical pox) Branch TDAP (ADACEL) VACCINE 2015-01-12 Completed Uni versity of 00:00:00 [facility] HPV 2015-01-12 Completed University of 00:00:00 [facility] Meningococcal Vaccine 2015-01-12 Completed Uni versity of 00:00:00 [facility] Varicella 2015-01-12 Completed University of (varivax)(chicken 00:00:00 [place] M edical pox) Branch Varicella 2006-10-27 Completed University of (varivax)(chicken 00:00:00 [place] M edical pox) Branch Varicella 2006-10-27 Completed University of (varivax)(chicken 00:00:00 [place] M edical pox) Branch Influenza Virus 2006-03-17 Completed Universit y of Vaccine 00:00:00 [facility] Influenza Virus 2006-03-17 Completed Universit y of Vaccine 00:00:00 [facility] DTAP 2005-10-12 Completed University of 00:00:00 [facility] HEPATITIS A 2005-10-12 Completed University of 00:00:00 [facility] MMR 2005-10-12 Completed University of 00:00:00 [facility] Polio (IPV/OPV) 2005-10-12 Completed Universit y of 00:00:00 [facility] DTAP 2005-10-12 Completed University of 00:00:00 [facility] HEPATITIS A 2005-10-12 Completed University of 00:00:00 [facility] MMR 2005-10-12 Completed University of 00:00:00 [facility] Polio (IPV/OPV) 2005-10-12 Completed Universit y of 00:00:00 [facility] Influenza Virus 2005-04-08 Completed Universit y of Vaccine 00:00:00 [facility] Influenza Virus 2005-04-08 Completed Universit y of Vaccine 00:00:00 [facility] HIB 4 Dose Schedule 2004-10-04 Completed Unive rsity of 00:00:00 [facility] HEPATITIS A 2004-10-04 Completed University of 00:00:00 [facility] Polio (IPV/OPV) 2004-10-04 Completed Universit y of 00:00:00 [facility] Pneumococcal 7 2004-10-04 Completed University of Conjugate, PCV7 00:00:00 [facility] ica (Prevnar7) Branch HIB 4 Dose Schedule 2004-10-04 Completed Unive rsity of 00:00:00 [facility] HEPATITIS A 2004-10-04 Completed University of 00:00:00 [facility] Polio (IPV/OPV) 2004-10-04 Completed Universit y of 00:00:00 [facility] Pneumococcal 7 2004-10-04 Completed University of Conjugate, PCV7 00:00:00 [facility] [place] [facility] (Prevnar7) Branch DTAP 2003-01-06 Completed University of 00:00:00 [facility] HIB 4 Dose Schedule 2003-01-06 Completed Unive rsity of 00:00:00 [facility] Polio (IPV/OPV) 2003-01-06 Completed Universit y of 00:00:00 [facility] Pneumococcal 7 2003-01-06 Completed University of Conjugate, PCV7 00:00:00 [facility] ical (Prevnar7) Branch DTAP 2003-01-06 Completed University of 00:00:00 [facility] HIB 4 Dose Schedule 2003-01-06 Completed Unive rsity of 00:00:00 [facility] Polio (IPV/OPV) 2003-01-06 Completed Universit y of 00:00:00 [facility] Pneumococcal 7 2003-01-06 Completed University of Conjugate, PCV7 00:00:00 [place] Med ical (Prevnar7) Branch MMR 2002-10-09 Completed University of 00:00:00 [facility] Varicella 2002-10-09 Completed University of (varivax)(chicken 00:00:00 [place] M edical pox) Branch Pneumococcal 7 2002-10-09 Completed University of Conjugate, PCV7 00:00:00 [place] Med ical (Prevnar7) Branch MMR 2002-10-09 Completed University of 00:00:00 [facility] Branch Varicella 2002-10-09 Completed University of (varivax)(chicken 00:00:00 [place] M edical pox) Branch Pneumococcal 7 2002-10-09 Completed University of Conjugate, PCV7 00:00:00 [place] Med ical (Prevnar7) Branch Pneumococcal 7 2002-07-03 Completed University of Conjugate, PCV7 00:00:00 [place] Med ical (Prevnar7) Branch Pneumococcal 7 2002-07-03 Completed University of Conjugate, PCV7 00:00:00 [place] Med ical (Prevnar7) Branch DTAP 2002-04-03 Completed University of 00:00:00 [facility] HIB 4 Dose Schedule 2002-04-03 Completed Unive rsity of 00:00:00 [facility] Hep B, Adol or Pedi 2002-04-03 Completed Unive rsity of Dosage 00:00:00 [facility] DTAP 2002-04-03 Completed University of 00:00:00 [facility] HIB 4 Dose Schedule 2002-04-03 Completed Unive rsity of 00:00:00 [facility] Hep B, Adol or Pedi 2002-04-03 Completed Unive rsity of Dosage 00:00:00 [facility] DTAP 2002-02-06 Completed University of 00:00:00 [facility] HIB 4 Dose Schedule 2002-02-06 Completed Unive rsity of 00:00:00 [facility] Polio (IPV/OPV) 2002-02-06 Completed Universit y of 00:00:00 [facility] DTAP 2002-02-06 Completed University of 00:00:00 [facility] HIB 4 Dose Schedule 2002-02-06 Completed Unive rsity of 00:00:00 [facility] Polio (IPV/OPV) 2002-02-06 Completed Universit y of 00:00:00 [facility] DTAP 2001 Completed University of 00:00:00 [facility] Branch HIB 4 Dose Schedule 2001 Completed Unive rsity of 00:00:00 [place] [facility] Hep B, Adol or Pedi 2001 Completed Unive rsity of Dosage 00:00:00 [facility] Polio (IPV/OPV) 2001 Completed Universit y of 00:00:00 [facility] DTAP 2001 Completed University of 00:00:00 [facility] HIB 4 Dose Schedule 2001 Completed Unive rsity of 00:00:00 [place] [facility] Hep B, Adol or Pedi 2001 Completed Unive rsity of Dosage 00:00:00 [facility] Polio (IPV/OPV) 2001 Completed Universit y of 00:00:00 [place] [facility] Hep B, Adol or Pedi 2001 Completed Unive rsity of Dosage 00:00:00 [facility] Hep B, Adol or Pedi 2001 Completed Unive rsity of Dosage 00:00:00 [facility] Vital Signs Vital Name Observation Time Observation Value Comments Source Systolic blood 2021-08-18 19:06:00 108 mm[Hg] Univer sity of [place] pressure [facility] Branch Diastolic blood 2021-08-18 19:06:00 70 mm[Hg] Unive rsity of [place] pressure [facility] Heart rate 2021-08-18 19:06:00 105 /min [facility] Body height 2021-08-18 19:06:00 180.3 cm [facility] Body weight 2021-08-18 19:06:00 79.379 kg [facility] BMI 2021-08-18 19:06:00 24.41 kg/m2 [facility] Body mass index 2021-08-18 19:06:00 66.71 % Unive rsity of [place] (BMI) [Percentile] Medical B ranch Per age and sex Oxygen saturation 2021-08-18 19:06:00 99 /min Uni versity [facility] in Arterial blood Medical Br anch by Pulse oximetry Procedures Procedure Date / Time Performed Performing Clinician Sourc e PHYSICIAN ORDERS 2021-08-22 05:01:00 Doctor Unassigned, No Unive rsity of [facility] HB ECG ROUTINE & 2021-08-18 19:12:47 Paige Faye Univers ity [facility] Encounters Start End Encounter Admission Attending Care Care Encounter Source Date/Time Date/Time Type Type Clinicians Facility Department ID 2021-09-30 2021-09-30 Outpatient Rossi FAYE [facility] [id number] Univers 13:00:00 13:00:00 SENDIL ity [facility] 2021-09-30 2021-09-30 Outpatient Rossi FAYE [facility] [id number] Univers 13:00:00 13:00:00 SENDIL ity [facility] 2021-08-22 2021-08-22 Outpatient Rossi FAYE [facility] [id number] Univers 15:00:00 15:00:00 [facility] 2021-08-22 2021-08-22 Outpatient Rossi FAYE [facility] [id number] Univers 15:00:00 15:00:00 [facility] 2021-08-22 2021-08-22 Orders Doctor GUS [id number] Univers 00:00:00 00:00:00 Only Unassigned, JOSUÉ [id number] ity of [facility] [id number] [place] as [phone] [address] 2021-08-19 2021-08-19 Outpatient Rossi FAYE [facility] [id number] Univers 16:00:00 16:00:00 SENDIL ity [facility] 2021-08-19 2021-08-19 Outpatient R YUNIER [facility] [id number] Univers 16:00:00 16:00:00 SENDIL ity [facility] 2021-08-18 2021-08-18 Office Yunier RIJOSIAH [id number] Univers 14:00:00 16:08:46 Visit Paige MAKI [id number] ity [facility] [id number] [place] PROF[place] [phone] [place] [id number] [facility] 2021-08-18 2021-08-18 Outpatient R YUNIER, [facility] [id number] Univers 14:00:00 16:08:46 SENDIL ity [facility] 2021-06-24 2021-06-24 Outpatient R SANTIAGO, [facility] [id number] Univers 10:00:00 10:00:00 RENAE jacobcierra o f [facility] 2021-05-31 2021-06-02 Outpatient X ARIANE [facility] [id number] Univers 17:45:00 11:35:00 FREDDY itcierra [facility] 2021-05-31 2021-06-02 Emergency Dwain Walker Rayna [facility] 1.2.840 .114 [id number] Univers 17:45:00 11:35:00 Freddy Thakkar [id number] ity of [id number] [phone] [facility] 081 Branch 2021-06-01 2021-06-01 [facility] [id number] Univers 13:00:00 15:07:00 Roula MAKI [id number] i ty of [id number] [place]ICAL [id number] [facility] 020 Branch 2021-06-01 2021-06-01 Anesthesia Clint Samaniego [facility] [id number] Univers 12:59:00 14:26:00 Event Ramón Galan [id number] ity of [place] [id number] [place] [id number] [facility] 020 Branch 2021-05-31 2021-05-31 Outpatient R [facility] [id number] Univers 19:00:00 19:00:00 ity [facility] 2021-05-31 2021-05-31 Outpatient R [facility] [id number] Univers 17:00:00 17:00:00 ity [facility] 2021-05-26 2021-05-26 Outpatient R AILEEN [facility] [id number] Univers 09:00:00 09:00:00 EVARISTO holland [facility] 2021-05-26 2021-05-26 Outpatient R AILEEN [facility] [id number] Univers 09:00:00 09:00:00 EVARISTO cierra [facility] 2021-05-19 2021-05-19 [facility]ilvia [facility] [id number] Univers 00:00:00 00:00:00 [facility] [id number] it y carleen [place] [id number] [place]o as BEE?BLEA [phone] Nm dical MAMEEY [address] [place] MEDICAL OFFICE BUILDING 2021-04-29 2021-04-29 Railroad Inspector Minnie, Karen Lab Main [facility] 1.2.8 [id number] Univers 12:12:51 12:27:51 Visit Aileen Evaristo GLYNN [id number] ity [facility] [id number] [place] [id number] Nm dical NAL 353 [facility] 2021-04-29 2021-04-29 [facility] [id number] Univers 12:15:00 12:15:00 EVARISTO holland [facility] 2021-04-28 2021-04-28 Office [facility] 1.2.840.114 [id number] Univers 10:25:19 12:06:05 Visit Evaristo BARKSDALEMICHELLE [id number] i ty of [facility] [id number] [place] [id number] Nm dical COLLEEN 044 [facility] 2021-04-28 2021-04-28 Outpatient R AILEEN [facility] [id number] Univers 10:00:00 12:06:05 EVARISTO holland [facility] 2021-04-28 2021-04-28 [facility] [id number] Univers 10:00:00 10:00:00 EVARISTO holland [facility] 2021-04-28 2021-04-28 Orders Doctor WEBER [id number] [id number] Univers 00:00:00 00:00:00 Only Unassigned, JOSUÉ [id number] ity of [place] [facility] [id number] Keo as [id number] [facility] [address] [place] 2021-04-24 2021-04-24 Outpatient R ANSELMO [facility] [id number] Univers 14:20:00 14:20:00 KELLY holland o [facility] 2021-04-24 2021-04-24 [facility] [id number] Univers 14:20:00 14:20:00 KELLY holland o ann marie [facility] 2021-04-20 2021-04-20 Telephone GUS Chavira [id number] Univers 00:00:00 00:00:00 Kristin MOSES [id number] it y of HOSPITAL [id number] [place] as [id number] [facility] [address] [place] 2021-04-19 2021-04-19 Outpatient R MARIO [facility] [id number] Univers 16:00:00 16:27:01 MIGUEL ANGEL ity of [facility] 2021-04-19 2021-04-19 Laboratory Only, Ang Db Test [facility] 1.2.8 40.114 [id number] Univers 16:00:30 16:15:30 Only Unknown, Attending HEALTH [id number] ity of [place] [id number] Keo as BEE?BLEA [id number] [address] MEDICAL OFFICE BUILDING 2021-04-19 2021-04-19 Outpatient R [facility] [id number] Univers 15:30:00 15:30:00 ity of [facility] 2021-04-19 2021-04-19 Letter Doctor GUS [id number] [id number] Univers 00:00:00 00:00:00 (Out) Unassigned, JOSUÉ [id number] ity of [place] [facility] [id number] Keo as [phone] [facility] [address] [place] 2021-04-19 2021-04-19 Letter Provider, [facility] [id number] Univers 00:00:00 00:00:00 (Out) Ang Db HEALTH [id number] it y of [facility] [place] [id number] [place] BEE?BLEA [id number] [facility] [address] [place] MEDICAL OFFICE [facility] 2021-04-18 2021-04-18 Outpatient R [facility] [id number] Univers 14:30:00 14:30:00 ity of [facility] 2021-03-17 2021-03-17 Hospital [facility] 1.2.840.114 [id number] Univers 15:34:19 23:59:00 Encounter Patricia HEALTH [id number] ity of [place] [id number] Keo as BEE?BLEA [id number] [facility] [address] [place] MEDICAL OFFICE [facility] 2021-03-17 2021-03-17 Urgent [facility] [id number] Univers 15:03:03 15:42:59 Care Patricia HEALTH [id number] it y of [place] [id number] [place]o as BEE?BLEA [id number] [address] OFFICE [facility] 2021-03-17 2021-03-17 Outpatient R [facility] [id number] Univers 15:00:00 15:42:59 [facility] 2021-03-17 2021-03-17 Outpatient R SAUD [facility] [id number] Univers 14:20:00 14:20:00 [facility] 2021-03-17 2021-03-17 Letter Provider, [facility] [id number] Univers 00:00:00 00:00:00 (Out) Ang Db HEALTH [id number] it y of [facility]gent [facility] [place] [id number] [place] BEE?BLEA [id number] [address] MEDICAL OFFICE [facility] Results This patient has no known results.
[2022-12-06 19:37] LABS: Absolute Lymphocytes (CBC) 2.5 K/uL (0.7-4.9); Hematocrit 50.7 % (39.6-49.0); Lymphocytes % 20.8 % (15.3-44.8); MCV 88.3 fL (80-100); MPV 8.8 fL (7.6-11.3); RBC Red Blood Cell Count 5.74 M/uL (4.33-5.43)
[2022-12-06 19:40] LABS: Protime INR 1.15
[2022-12-06 19:53] LABS: Barbiturates NEGATIVE (NEGATIVE); Benzodiazepines NEGATIVE (NEGATIVE); Cocaine NEGATIVE (NEGATIVE); METHAMPHETAM POSITIVE (NEGATIVE); Methadone NEGATIVE (NEGATIVE); Opiates NEGATIVE (NEGATIVE); Phencyclidine NEGATIVE (NEGATIVE); THC Cannibis POSITIVE (NEGATIVE)
[2022-12-06 19:57] LABS: Urine Bacteria None Seen /HPF (<20); Urine Bilirubin NEGATIVE (Negative); Urine Blood Negative (Negative); Urine Clarity Clear (Clear); Urine Color Yellow (Yellow); Urine Glucose NEGATIVE (Negative); Urine Mucus 1+ /HPF (None Seen); Urine Protein TRACE (Negative); Urine RBC <5 /HPF (None Seen); Urine Urobilinogen Normal (Normal)
[2022-12-06 19:58] LABS: BUN Blood Urea Nitrogen 17 mg/dL (7-18); Bicarbonate 22 mEq/L (21-32); Glomerular Filtration Rate 125 ml/min (=/>90); Glucose Level 82 mg/dL (74-106); Magnesium 2.1 mg/dL (1.6-2.4); Potassium 3.3 mEq/L (3.5-5.1); Sodium Level 135 mEq/L (136-145)
[2022-12-06 20:02] LABS: NT PRO-BNP < 5 pg/mL (<125); Troponin High Sensitivity < 3.0 pg/mL (<58.9)
[2022-12-06] MEDS ORDERED: NA CHLORIDE 0.9% 1,000 ML ONE ×2 (20:15→20:41)
--- NOTE | 2022-12-06 20:18 | RAD REPORT ---
EXAM DESCRIPTION: Violet Single View12/06/2022 7:23 pm CLINICAL HISTORY: sob COMPARISON: none FINDINGS: The lungs appear clear of acute infiltrate. The heart is normal size IMPRESSION: No acute abnormalities displayed
[2022-12-06] MEDS ORDERED: POTASSIUM 25 MEQ EFFERV TAB ONE (20:41)
[2022-12-06] MEDS ORDERED: LORazepam 2 MG/ML VIAL ONE (20:41)
--- NOTE | 2022-12-06 22:19 | ER ---
Nurse's Notes [facility] Name: Bennett Oconnor Age: 22 yrs Sex: Male : 2000 Arrival Date: 12/06/2022 Time: 18:43 Bed 5 Private MD: Diagnosis: Shortness of breath;Adverse effect of amphetamines;Palpitations Presentation: 12/06 18:54 Chief complaint: Patient states: SOB that started today, appears anxious in triage, ph also reports " my back feels hot" also reports numbness and tingling to face and hands. Coronavirus screen: Vaccine status: Patient reports receiving the 2nd dose of the covid vaccine. Ebola Screen: No symptoms or risks identified at this time. Initial Sepsis Screen: Does the patient meet any 2 criteria? No. Patient's initial sepsis screen is negative. Does the patient have a suspected source of infection? No. Patient's initial sepsis screen is negative. Risk Assessment: Do you want to hurt yourself or someone else? Patient reports no desire to harm self or others. 18:54 Method Of Arrival: Ambulatory ph 18:54 Acuity: KERRIE 3 ph Triage Assessment: 22:57 Respiratory: the patient has mild shortness of breath. lg3 Historical: - Allergies: 18:58 No Known Allergies; ph - PMHx: 18:58 Asthma; ph - PSHx: 18:58 Appendectomy; surgery on left hand; ph - Immunization history:: Adult Immunizations unknown. - Social history:: Smoking status: Reported history of juuling and/or vaping. Screenin:32 [facility] ED Fall Risk Assessment (Adult) History of falling in the last 3 months, lg3 including since admission No falls in past 3 months (0 pts). Abuse screen: Denies threats or abuse. Denies injuries from another. Nutritional screening: No deficits noted. Tuberculosis screening: No symptoms or risk factors identified. Assessment: 19:32 General: Appears in no apparent distress. uncomfortable, Behavior is anxious, fussy. lg3 Pain: Complains of pain in chest Pain does not radiate. Neuro: Sánchez Agitation-Sedation Scale (RASS): +1 Restless Level of Consciousness is awake, alert, obeys commands, Oriented to person, place, time, situation, Reports blurred vision dizziness, headache numbness weakness. Cardiovascular: No deficits noted. Reports chest pain, shortness of breath, Capillary refill < 3 seconds Clubbing of nail beds is absent JVD is absent Patient's skin is warm and dry. Rhythm is sinus rhythm. Respiratory: No deficits noted. Airway is patent Respiratory effort is even, unlabored, Respiratory pattern is regular, hyperventilation Breath sounds are clear bilaterally. GI: No deficits noted. No signs and/or symptoms were reported involving the gastrointestinal system. Abdomen is round non-distended, Bowel sounds present X 4 quads. : No deficits noted. No signs and/or symptoms were reported regarding the genitourinary system. EENT: No deficits noted. No signs and/or symptoms were reported regarding the EENT system. Derm: No deficits noted. No signs and/or symptoms reported regarding the dermatologic system. Skin is intact, is healthy with good turgor, Skin is clammy, Skin is normal, Skin temperature is cool. Musculoskeletal: No deficits noted. Circulation, motion, and sensation intact. Range of motion: intact in all extremities. 20:49 General: Appears uncomfortable, Behavior is anxious, fussy, inappropriate for age. lg3 Cardiovascular: Rhythm is sinus tachycardia. Respiratory: Airway is patent Respiratory effort is even, unlabored, Respiratory pattern is hyperventilation. 22:07 Reassessment: Patient appears in no apparent distress at this time. No changes from lg3 previously documented assessment. Patient and/or family updated on plan of care and expected duration. Pain level reassessed. Patient is alert, oriented x 3, equal unlabored respirations, skin warm/dry/pink. pt quietly resting at this time Patient states symptoms have improved. 22:55 Reassessment: Patient appears in no apparent distress at this time. No changes from lg3 previously documented assessment. Patient and/or family updated on plan of care and expected duration. Pain level reassessed. Patient is alert, oriented x 3, equal unlabored respirations, skin warm/dry/pink. Patient states feeling better. Patient states symptoms have improved. Vital Signs: 18:54 BP 132 / 78; Pulse 115; Resp 24; Temp 97.6; Pulse Ox 100% on R/A; Weight 89.36 kg; ph Height 6 ft. 0 in. ; 20:55 BP 134 / 67; Pulse 110; Resp 16; Temp 98.6; Pulse Ox 100% on R/A; jb5 21:45 BP 129 / 68; Pulse 92; Resp 20; Pulse Ox 98% ; vc1 22:15 BP 121 / 64; Pulse 94; Resp 22; Pulse Ox 97% ; vc1 18:54 Body Mass Index 26.72 (89.36 kg, 182.88 cm) ph ED Course: 18:45 Patient arrived in ED. mr 18:47 Tony Kent MD is Attending Physician. rn 18:47 Tulio Perez PA is PHCP. cp 18:58 Triage completed. ph 18:58 Arm band placed on Patient placed in an exam room, in waiting room, Patient notified of ph wait time. 19:25 XRAY Chest (1 view) In Process Unspecified. EDMS 19:31 Qian Johnson, RN is Primary Nurse. lg3 19:31 Inserted saline lock: 20 gauge in right antecubital area, using aseptic technique. lg3 Blood collected. 19:31 UDS Sent. lg3 19:31 Urinalysis W/Microscopic Sent. lg3 19:31 Basic Metabolic Panel Sent. lg3 19:31 CBC with Diff Sent. lg3 19:31 D-Dimer Sent. lg3 19:31 Magnesium Sent. lg3 19:31 NT PRO-BNP Sent. lg3 19:31 PT-INR Sent. lg3 19:31 Troponin HS Sent. lg3 19:32 Patient has correct armband on for positive identification. Placed in gown. Bed in low lg3 position. Call light in reach. Side rails up X 1. Client placed on continuous cardiac and pulse oximetry monitoring. NIBP monitoring applied. monitor technician on. Door closed. Noise minimized. Warm blanket given. 19:32 Patient maintains SpO2 saturation greater than 95% on room air. lg3 22:30 No provider procedures requiring assistance completed. vc1 22:55 IV discontinued, intact, bleeding controlled, No redness/swelling at site. Pressure lg3 dressing applied. 22:57 Provided Education on: effects of drug abuse. lg3 Administered Medications: 20:08 Drug: NS 0.9% IV 1000 ml Route: IV; Rate: 1 bolus; Site: right antecubital; kd3 22:55 Follow up: Response: No adverse reaction; IV Status: Completed infusion; IV Intake: lg3 1000ml 20:48 Drug: Ativan IVP 1 mg Route: IVP; Site: right antecubital; lg3 22:55 Follow up: Response: No adverse reaction; Marked relief of symptoms; RASS: Drowsy (-1) lg3 20:48 Drug: NS 0.9% IV 1000 ml Route: IV; Rate: 1 bolus; Site: right antecubital; lg3 22:54 Follow up: Response: No adverse reaction; IV Status: Infusion continued; IV Intake: lg3 1000ml 20:49 Drug: Potassium PO Effervescent Tablet 25 mEq Route: PO; lg3 22:55 Follow up: Response: No adverse reaction lg3 Medication: 22:30 VIS not applicable for this client. vc1 Intake: 22:54 IV: 1000ml; Total: 1000ml. lg3 22:55 IV: 1000ml; Total: 2000ml. lg3 Outcome: 22:18 Discharge ordered by . cp 22:55 Discharged to home via wheelchair, with family. lg3 22:55 Condition: stable 22:55 Discharge instructions given to patient, Instructed on discharge instructions, follow up and referral plans. medication usage, Demonstrated understanding of instructions, follow-up care, medications, Prescriptions given X 1. 22:57 Patient left the ED. lg3 Signatures: Dispatcher [employer] LES MclainDana zabala Roman, MD MD rn Hall, Patricia RN RN Tulio Monson PA PA cp Broussard, Jennifer jb5 Gibson, Lacie, RN RN lg3 Rozina Rocha RN RN kd3 Cynthia Riggins RN RN vc1
--- NOTE | 2022-12-06 22:20 | EDPHYS ---
Physician Documentation [facility] Name: Bennett Oconnor Age: 22 yrs Sex: Male : 2000 Arrival Date: 12/06/2022 Time: 18:43 Bed 5 Private MD: ED Physician Tony Kent HPI: 12/06 19:00 This 22 yrs old Male presents to ER via Ambulatory with complaints of Breathing cp Difficulty. 19:00 The patient has shortness of breath at rest. Onset: The symptoms/episode began/occurred cp today. 19:00 Duration: The symptoms are continuous, and are steadily getting worse. cp 19:00 Associated signs and symptoms: Pertinent positives: dizziness, numbness in extremities, cp Pertinent negatives: chest pain, fever, vomiting. Severity of symptoms: in the emergency department the symptoms are unchanged despite home interventions. Patient admits to use of methamphetamine with last use 1 week ago. Historical: - Allergies: 18:58 No Known Allergies; ph - PMHx: 18:58 Asthma; ph - PSHx: 18:58 Appendectomy; surgery on left hand; ph - Immunization history:: Adult Immunizations unknown. - Social history:: Smoking status: Reported history of juuling and/or vaping. ROS: 19:05 Constitutional: Negative for body aches, chills, fever, poor PO intake. cp 19:05 Eyes: Negative for injury, pain, redness, and discharge. cp 19:05 ENT: Negative for drainage from ear(s), ear pain, sore throat, difficulty swallowing, difficulty handling secretions. 19:05 Cardiovascular: Positive for palpitations, Negative for chest pain, edema. 19:05 Respiratory: Positive for shortness of breath, at rest. Negative for cough, wheezing. 19:05 Abdomen/GI: Negative for abdominal pain, vomiting, diarrhea, constipation. 19:05 Back: Negative for pain at rest, pain with movement, radiated pain. 19:05 : Negative for urinary symptoms. 19:05 Neuro: Positive for dizziness, near syncope, Negative for altered mental status, headache, syncope. 19:05 All other systems are negative. Exam: 19:10 Constitutional: The patient appears in no acute distress, alert, awake, cp non-diaphoretic, non-toxic, well developed, well nourished, anxious. 19:10 Head/Face: Normocephalic, atraumatic. cp 19:10 Eyes: Periorbital structures: appear normal, Pupils: equal, round, and reactive to light and accomodation, Extraocular movements: intact throughout, Conjunctiva: normal, no exudate, no injection, Sclera: no appreciated abnormality, Lids and lashes: appear normal, bilaterally. 19:10 ENT: External ear(s): are unremarkable, Nose: is normal, Mouth: Lips: moist, Oral mucosa: moist, Posterior pharynx: is normal, airway is patent, no erythema, no exudate. 19:10 Neck: ROM/movement: is normal, is supple, without pain, no range of motions limitations, no meningismus, no nuchal rigidity. 19:10 Chest/axilla: Inspection: normal, Palpation: is normal, no crepitus, no tenderness. 19:10 Cardiovascular: Rate: tachycardic, Rhythm: regular, Pulses: Pulses are 2+ in right radial artery and left radial artery. Edema: is not appreciated, JVD: is not appreciated. 19:10 Respiratory: the patient does not display signs of respiratory distress, Respirations: labored breathing, is not present, shallow respirations, that is mild, Breath sounds: are clear throughout, no decreased breath sounds, no stridor, no wheezing. 19:10 Abdomen/GI: Inspection: abdomen appears normal, Bowel sounds: active, all quadrants, Palpation: abdomen is soft and non-tender, in all quadrants. 19:10 Back: pain, is absent, ROM is normal. 19:10 Skin: abscess, not appreciated, no rash present. 19:10 Neuro: Orientation: to person, place \T\ time. Mentation: is normal, Cerebellar function: is grossly normal, Motor: moves all fours, strength is normal, Sensation: numbness, that is mild, of the right hand and left hand. Vital Signs: 18:54 BP 132 / 78; Pulse 115; Resp 24; Temp 97.6; Pulse Ox 100% on R/A; Weight 89.36 kg; ph Height 6 ft. 0 in. ; 20:55 BP 134 / 67; Pulse 110; Resp 16; Temp 98.6; Pulse Ox 100% on R/A; jb5 21:45 BP 129 / 68; Pulse 92; Resp 20; Pulse Ox 98% ; vc1 22:15 BP 121 / 64; Pulse 94; Resp 22; Pulse Ox 97% ; vc1 18:54 Body Mass Index 26.72 (89.36 kg, 182.88 cm) ph MDM: 18:47 Patient medically screened. rn 19:00 Differential diagnosis: Anemia asthma, pneumonia, Pneumothorax pulmonary edema, cp Pulmonary Embolism. 22:17 Data reviewed: vital signs, nurses notes, lab test result(s), EKG, radiologic studies, cp plain films. 22:17 I considered the following discharge prescriptions or medication management in the emergency department Medications were administered in the Emergency Department. See MAR. Test considered but Not performed: CT: chest. Care significantly affected by the following chronic conditions: asthma. Counseling: I had a detailed discussion with the patient and/or guardian regarding: the historical points, exam findings, and any diagnostic results supporting the discharge/admit diagnosis, lab results, radiology results, to return to the emergency department if symptoms worsen or persist or if there are any questions or concerns that arise at home. Response to treatment: the patient's symptoms have markedly improved after treatment, and as a result, I will discharge patient. 12/06 18:57 Order name: Basic Metabolic Panel; Complete Time: 20:08 12/06 20:08 Interpretation: Normal except: NA 135; K 3.3; CA 10.4. 12/06 18:57 Order name: CBC with Diff; Complete Time: 19:47 cp 12/06 19:47 Interpretation: Normal except: WBC 12.20; RBC 5.74; HCT 50.7; NEUT A 8.6. 12/06 18:57 Order name: D-Dimer; Complete Time: 19:47 12/06 18:57 Order name: Magnesium; Complete Time: 20:08 12/06 18:57 Order name: NT PRO-BNP; Complete Time: 20:08 12/06 18:57 Order name: PT-INR; Complete Time: 19:47 12/06 18:57 Order name: Troponin HS; Complete Time: 20:08 12/06 18:57 Order name: Urinalysis W/Microscopic; Complete Time: 20:08 12/06 20:08 Interpretation: Normal except: UKET 4+ (Over); UPROT TRACE. 12/06 18:57 Order name: UDS; Complete Time: 20:08 12/06 20:33 Interpretation: Normal except: METHAMPHETAMINE POSITIVE; THC POSITIVE. 12/06 18:57 Order name: XRAY Chest (1 view); Complete Time: 20:33 12/06 20:33 Interpretation: Report review. 12/06 18:57 Order name: EKG; Complete Time: 18:58 12/06 18:57 Order name: Cardiac monitoring; Complete Time: 19:31 12/06 18:57 Order name: EKG - Nurse/Tech; Complete Time: 19:31 12/06 18:57 Order name: IV Saline Lock; Complete Time: 19:31 12/06 18:57 Order name: Labs collected and sent; Complete Time: 19:31 12/06 18:57 Order name: O2 Per Protocol; Complete Time: 19:31 12/06 18:57 Order name: O2 Sat Monitoring; Complete Time: 19:31 cp Administered Medications: 20:08 Drug: NS 0.9% IV 1000 ml Route: IV; Rate: 1 bolus; Site: right antecubital; kd3 22:55 Follow up: Response: No adverse reaction; IV Status: Completed infusion; IV Intake: lg3 1000ml 20:48 Drug: Ativan IVP 1 mg Route: IVP; Site: right antecubital; lg3 22:55 Follow up: Response: No adverse reaction; Marked relief of symptoms; RASS: Drowsy (-1) lg3 20:48 Drug: NS 0.9% IV 1000 ml Route: IV; Rate: 1 bolus; Site: right antecubital; lg3 22:54 Follow up: Response: No adverse reaction; IV Status: Infusion continued; IV Intake: lg3 1000ml 20:49 Drug: Potassium PO Effervescent Tablet 25 mEq Route: PO; lg3 22:55 Follow up: Response: No adverse reaction lg3 Disposition Summary: 12/06/22 22:18 Discharge Ordered Location: Home cp Problem: new cp Symptoms: have improved cp Condition: Stable cp Diagnosis - Shortness of breath cp - Adverse effect of amphetamines cp - Palpitations cp Followup: cp - With: Private Physician - When: 1 - 2 days - Reason: Recheck today's complaints Discharge Instructions: - Discharge Summary Sheet cp - Palpitations cp - Shortness of Breath, Adult cp - Methamphetamines Use Disorder cp - Ambulatory Cardiac Monitoring cp Forms: - Medication Reconciliation Form cp - Thank You Letter cp - Antibiotic Education cp - Prescription Opioid Use cp - Patient Portal Instructions cp Prescriptions: - Vistaril 25 mg Oral capsule - take 1 capsule by ORAL route every 6 hours; 20 capsule; Refills: 0, Product cp Selection Permitted Signatures: Dispatcher [employer] Tony Hooper MD MD rn Hall, Patricia RN RN Tulio Monson, SHANTELL PA Qian Urias RN RN lg3 Rozina Rocha RN RN kd3
[2022-12-06 23:27] VITALS: TEMP 97.6
[2022-12-06 23:31] VITALS: BP 121/64; O2SAT 97
--- NOTE | 2022-12-07 12:02 | EKG ---
Test Date: 2022-12-06 Test Time: 19:28:13 [employer] Helper: LUTHER MEASUREMENT RESULTS: Intervals: Rate: 103 AL: 152 QRSD: 96 QT: 344 QTc: 450 [place]: P: 67 AL: 152 QRS: 95 T: 67 INTERPRETIVE STATEMENTS: Sinus tachycardia Rightward axis Borderline ECG No previous ECG available for comparison Electronically Signed On 12-07-22 12:01:53 CDT by Ajit Harris
== END 2022-12-06 22:57 | disposition home or self-care (01) ==
LOC: ER 18:43
DX: R06.02 Shortness of breath (principal); R00.2 Palpitations; T43.625A Adverse effect of amphetamines, initial encounter
CPT/HCPCS: 36415; 71045; 80048; 80307; 81001; 83735; 83880; 84484; 85025; 85379; 85610; 93005; J7030